=== PATIENT | female | born 1940 | race Caucasian/White ===

== ENCOUNTER 2017-08-03 23:23 | Inpatient (IN) | payer MEDICARE ==
[2017-08-04] MEDS ORDERED: Ondansetron HCl/PF 4 MG/2 ML Vial ONE (01:12)
[2017-08-04] MEDS ORDERED: Morphine 2 mg/2ml in 0.9% NaCl PF SYRINGE ONE (01:12)
[2017-08-04 02:29] LABS: Band 2 % (5-11); Hematocrit 42.6 % (36.0-47.0); Neutrophil 86 % (42-75); Red Blood Cell (RBC) Count 4.17 mill/uL (4.20-5.40); White Blood Cell (WBC) Count 12.7 thou/uL (4.8-10.8)
[2017-08-04 02:30] LABS: ALT (SGPT) 13 U/L (8-55); AST (SGOT) 22 U/L (5-34); Alkaline Phosphatase 67 U/L (40-150); Anion Gap 13 mmol/L (10-20); BUN (Urea Nitrogen) 24 mg/dL (9.8-20.1); Calc. Creatinine Clearance 0 mL/min (70-130); Calcium 9.7 mg/dL (7.8-10.44); Carbon Dioxide 27 mmol/L (23-31); Chloride 103 mmol/L (98-107); Estimated GFR-MDRD 60; Globulin 2.9 g/dL (2.4-3.5); Protein, Total 6.8 g/dL (6.0-8.3)
[2017-08-04] MEDS ORDERED: Ondansetron ODT 4 MG TAB PO PRN (03:31)
[2017-08-04] MEDS ORDERED: Ketorolac Tromethamine 30 MG/ML VIAL IVP PRN (03:31)
[2017-08-04] MEDS ORDERED: Morphine PF 1 MG/ML SYR IVP PRN (03:31)
[2017-08-04] MEDS ORDERED: Acetaminophen 500 MG TAB PO PRN (03:31)
[2017-08-04] MEDS ORDERED: Dextrose 50% Abboject 50 ML SYRINGE SLOW IVP PRN (03:31)
[2017-08-04] MEDS ORDERED: Dextrose 5% in Water 1,000 ML IV PRN (03:31)
[2017-08-04] MEDS ORDERED: Sodium Chloride 0.9% 500 ML IV SCH (08:15)
--- NOTE | 2017-08-04 09:05 | CON ---
DATE OF CONSULTATION: 08/04/2017 HISTORY OF PRESENT ILLNESS: Patient is a 77-year-old female who presented to the emergency department overnight for mechanical fall approximately 2000 after getting out of bed. Patient was a gain complaining of low back and right leg pain at that time. Evaluation with imaging revealed a rig ht femur injury as well as T12 compression deformity; therefore, patient was [facility] for further management and the Neurosurgery Service was also consulted. I will see the patien t at the bedside. She appears comfortable lying flat in bed. She has complaints of some low back an d right leg pain. She denies any sensation changes, bowel or bladder issues. PAST MEDICAL HISTORY: Hypothyroidism, atrial fibrillation, DVT, hypertension. PAST SURGICAL HISTORY: Right knee replacement, hysterectomy, right hip replacement, right ankle surg vinicius. SOCIAL HISTORY: The patient does not smoke, drink or use any drugs. ALLERGIES: The patient is allergic to ATIVAN, CEFTIN, CIPROFLOXACIN, CLINDAMYCIN, DIGOXIN, GABAPENTI N, LEVOFLOXACIN, LYRICA, MOVANTIK, ROCEPHIN, and TRAMADOL. REVIEW OF SYSTEMS: Per HPI. PHYSICAL EXAMINATION: CONSTITUTIONAL: In no acute distress. VITAL SIGNS: Temperature 97.9, heart rate 73, respiratory rate 16, 98% on room air, BP is 134/62. HEAD: Normocephalic, atraumatic. EYES: PERRLA. Extraocular movements are intact. Sclerae are white. ENT: OP is clear. Mucosa is pink, intact and moist. NECK: Supple, nontender to palpation. Free active range of motion. CARDIAC: Regular rate and rhythm. LUNGS: Regular respiration rate, breathing comfortable, no evidence of dyspnea. MUSCULOSKELETAL: Patient has good muscle tone in bilateral upper extremities, decreased range of mot ion over the right leg secondary to recent injury. No focal weakness. NEUROLOGIC: A&O x4. No focal neurologic deficit is appreciated. ASSESSMENT: T12 compression fracture. PLAN: I have ordered a TLSO brace for patient's T12 compression fracture seen on imaging. The patie nt should wear the brace for all out of bed activities. She can be moved briefly to shower when she is lying flat in the bed. We will plan to follow the patient on an outpatient basis with a repeat se t of x-ray in recent 4 weeks. Please reach out to Neurosurgical Service for any additional questions or concerns.
--- NOTE | 2017-08-04 09:17 | RAD ---
PORTABLE CHEST: Date: 08/04/17 HISTORY: Fell from bed with chest pain. COMPARISON: 08/05/16. FINDINGS: The patient is rotated on this exam. Heart size is enlarged. The lungs are clear of infiltrates. I do not see any signs of rib fracture or evidence of pneumothorax. IMPRESSION: Mild cardiomegaly. No acute injury seen. POS: [facility]
--- NOTE | 2017-08-04 09:19 | RAD ---
RIGHT HIP 2 VIEWS: Date: 08/04/17 HISTORY: Fell from bed. FINDINGS: Total hip prosthesis is in good position. There are no signs of fracture. IMPRESSION: No evidence of acute injury. POS: [facility]
--- NOTE | 2017-08-04 09:20 | RAD ---
RIGHT KNEE 4 VIEWS: Date: 08/04/17 HISTORY: Patient fell. FINDINGS: Total knee prosthesis is present. There is a fracture through the medial femoral condyle partially ob scured by the femoral component of the prosthesis. Bones are demineralized. IMPRESSION: Acute fracture of the medial femoral condyle. There is an associated joint effusion which appears to represent a lipohemarthrosis. POS: [facility]
--- NOTE | 2017-08-04 09:22 | RAD ---
LUMBAR SPINE SERIES 2 VIEWS: Date: 08/04/17 HISTORY: Patient is status post fall. FINDINGS: There is a wedge-shaped T12 compression fracture. There appears to be some osteophyte change. There i s some retropulsion along the posterior superior margin of this vertebral body. This injury could be old. The remainder of the vertebral bodies are normal in height. There is Grade I spondylolisthesis o f L4 on L5. An IVC filter is in place. IMPRESSION: 1. T12 compression fracture which may be old. Clinical correlation as to whether this is the area of patient's pain. There is some bony retropulsion associated with this. Bone scan or MRI may be helpfu l in assessing the acuity of this injury. No lumbar vertebral fractures are seen. 2. Scoliosis and marked arthritic changes of the lumbar spine. POS: [facility]
--- NOTE | 2017-08-04 09:23 | RAD ---
THORACIC SPINE 2 VIEWS: Date: 08/04/17 HISTORY: Patient is status post fall with back pain. FINDINGS: There are scoliotic changes of the spine convex to the right. The T12 vertebral body shows a wedge-sh aped compression change. There appears to be osteophytic change associated with this. This could be a n older injury. Pedicles appear intact. IMPRESSION: 1. Scoliosis. 2. Age-indeterminate compression fracture of T12. POS: [facility]
[2017-08-04] MEDS: Famotidine/PF 20 mg/2ml Vial SLOW IVP SCH ×2 (09:24→21:33)
[2017-08-04] MEDS: HYDROcodone/Acetaminophen 5/325 mg Tablet PO PRN ×3 (09:36→21:42)
--- NOTE | 2017-08-04 09:59 | HP-2 ---
DATE OF ADMISSION: 08/04/2017 This is Darwin Pavon PA-C dictating for Torrey Dunbar M.D. CHIEF COMPLAINT: Evaluation status post fall. ATTENDING PHYSICIAN: Torrey Dunbar M.D. CONSULTING PHYSICIAN: Dr. Neal for Orthopedics, Dr. Weber for Neurosurgery. HISTORY OF PRESENT ILLNESS: This is a 77-year-old female who reported that she was in a standing pos ition trying to get of bed at approximately 8:00 and she fell and sustained some right knee and back pain. The patient denied any weakness, fever, nausea, vomiting, diarrhea. The patient denies report ing urinary symptoms, any dizziness, headaches, chest pain, shortness breath prior to falling. She d oes report similar episodes of fallen prior, but has not fallen quite some time. At this time, she i s lying supine, complained of only back pain and right lower knee pain. PAST MEDICAL HISTORY: Includes atrial fibrillation, hypertension, hypothyroidism, dystonia. PAST SURGICAL HISTORY: Includes right knee replacement, left knee replacement, bilateral hip replace ments. PSYCHIATRIC HISTORY: None. SOCIAL HISTORY: Denies any drug, tobacco or alcohol use. REVIEW OF SYSTEMS: All 10 systems were reviewed, otherwise stated in HPI were negative. PHYSICAL EXAMINATION: VITAL SIGNS: Currently blood pressure 126/73, heart rate 70, respiratory rate 20, and O2 saturation 95%. HEENT: Head is atraumatic, normocephalic. Pupils are equal, round, and reactive to light. No JVD, no masses. Trachea is midline. No cervical spine tenderness. RESPIRATORY: Clear bilaterally. CARDIOVASCULAR: S1, S2, regular rate and rhythm. ABDOMEN: Soft, nontender, and nondistended. Pelvis intact and nontender. BACK: She does have tenderness in the upper lumbar and lower thoracic area. Scoliosis present. EXTREMITIES: Sensation is intact. Radial pulses normal. Lower extremities, motor strength is limit ed due to pain, posterior pulses are intact. No edema. SKIN: Warm and dry. GCS 15. RADIOLOGIC FINDINGS: CT is pending. Thoracic x-ray showed T12 compression fracture significant ____ _ . Right knee x-ray shows a medial femoral condyle fracture. LABORATORY DATA: CBC shows WBC of 12.7, hemoglobin 13.9, hematocrit 43.6, platelet count 375. Chemi stry: Sodium 139, potassium 3.9, chloride 103, bicarbonate 27, BUN 24, creatinine 0.91, glucose 127. X-RAY FINDINGS: Chest x-ray, no acute disease. Hip x-ray, prosthetic . ASSESSMENT: 1. Status post fall from ground level. 2. T12 compression fracture. 3. Right medial condyle fracture of the femoral. 4. Acute traumatic pain. 5. History of hypertension. 6. History of atrial fibrillation. PLAN: Admit to the telemetry floor for monitoring for atrial fibrillation. We will continue with ne urovascular checks q.4 hours for bilateral lower extremities due to T12 compression fractures, we jasmina l also have best rest ordered until Neurosurgery clears the patient. Orthopedics have been called ab out weightbearing status on the right lower leg, nonoperative at this time. Neurosurgery has been no tified, Dr. Weber's PA, Renea. We will optimize her pain control with p.o. and IV analgesics. We will also have [facility] for medical management. The patient was discussed with Dr. Dunbar and agrees with the above plan.
--- NOTE | 2017-08-04 10:15 | CT ---
PRELIMINARY REPORT/[facility]/EMERGENCY AFTER HOURS PROCEDURE: EXAM: CT Lumbar Spine Without Intravenous Contrast EXAM DATE/TIME: Exam ordered 08/04/2017 2:02 AM CLINICAL HISTORY: 77 years old, female; Injury or trauma; Fall; Initial encounter; Abrasion; Patient HX: Fall; 77 yo f presents to ed for r knee and hip pain S/P fall from standing position while trying to get out of bed tonight at approximately 2000. Pt denies weakness, fever, nvd. Pt does report urinary SX. Pt has katya lar episodes of falling before. She also notes lower back pain from hitting her back against the dres ser when she fell TECHNIQUE: Axial computed tomography images of the lumbar spine without intravenous contrast. Coronal and sagittal reformatted images were created and reviewed. COMPARISON: No relevant prior studies available. FINDINGS: Vertebrae: No fracture. Degenerative change. Scoliosis. Chronic compression deformity of the T12 vert ebral body. Discs/spinal canal/neural foramina: Multilevel disc bulges. No definite nerve root impingement. No sp inal canal stenosis. Soft tissues: Unremarkable. Vasculature: IVC filter present. IMPRESSION: No fracture. Thank you for allowing us to participate in the care of your patient. Dictated and Authenticated by: Francisco Javier Sesay MD 08/04/2017 2:39 AM Central Time ([place] & [place]) FINAL REPORT EMERGENCY AFTER HOURS CT LUMBAR SPINE PERFORMED WITHOUT CONTRAST ENHANCEMENT: Date: 08/04/17 HISTORY: Back pain with right knee and right hip pain status post fall. FINDINGS: The lung bases show chronic change. There are some moderate compression changes of the superior end p late of T12. There is some minimal bony retropulsion of the posterior superior margin of the vertebra l body associated with this and what appeared to be some osteophytic change. I would favor that this represents an older injury. The remainder of the vertebral body is well demineralized and shows jonnie l height. There is severe disc narrowing at L2-3. There is a Grade I spondylolisthesis of L4 on L5. T here are moderate degenerative facet changes along the course of the lumbar spine. The L2-3 level shows retrolisthesis of L2 on L3 and mild degree of canal narrowing. There is also mil d to moderate degree of canal narrowing at L3-4 and severe canal stenosis at L4-5 related to the dege nerative facet changes and spondylolisthesis. No significant narrowing is seen at the L5-S1 level. Vi sualized portions of the sacrum show no signs of fracture. IMPRESSION: 1. Moderate compression changes of the superior end plate of T12 with some bony retropulsion of the posterior superior margin of the vertebral body. There appears to be some osteophytic change associat ed with this and I would favor that this is related to an older injury. Clinical correlation is recom mended. Bone scan or MRI may be helpful if this is felt to be acute. There is no significant canal na rrowing associated with this. 2. Severe arthritic change of the spine. There are some multilevel areas of canal stenosis, most sev ere degree of narrowing is at the L4-5 level where the combination of facet and ligamentous hypertrop hic changes and disc bulging causes moderate to severe canal narrowing. This report is in agreement with the preliminary report issued by [facility]. POS: [facility]
[2017-08-04] MEDS ORDERED: Ketoconazole 2% Cream 15 gm Tube TOP PRN (13:57)
[2017-08-04] MEDS ORDERED: diphenhydrAMINE 25 MG CAP PO PRN (13:57)
[2017-08-04] MEDS ORDERED: Ondansetron ODT 8 MG TAB PO PRN (13:57)
--- NOTE | 2017-08-04 14:00 | PDOC.PN ---
- Subjective Encounter Start Date: 08/04/17 Encounter Start Time: 08:40 Pt seen for management of chronic medical comorbidities, including hypertension. Denies chest pain, shortness fo breath, fevers or chills. Reports R hip pain. - Objective MAR Reviewed: Yes Vital Signs & Weight: Vital Signs (12 hours) Temp Pulse Resp BP BP Pulse Ox 08/04/17 12:08 98.4 F 82 16 116/56 L 98 08/04/17 08:05 97.9 F 73 16 98 08/04/17 08:03 97.9 F 73 16 134/62 98 08/04/17 05:30 98.0 F 76 18 97 08/04/17 04:10 98.0 F 76 18 141/85 H 97 Weight Weight 106 lb 12.8 oz I&O: 08/03/17 08/04/17 08/05/17 06:59 06:59 06:59 Output Total 125 Balance -125 Result Diagrams: 08/04/17 01:52 08/04/17 01:52 EKG Reviewed by me: Yes (Tele: NSR) Phys Exam - Physical Examination Constitutional: NAD HEENT: moist MMs, sclera anicteric Neck: supple Respiratory: clear to auscultation bilateral Cardiovascular: RRR, no rub Gastrointestinal: soft, non-tender Musculoskeletal: pulses present R hip pain Lymphatic: no nodes Psychiatric: normal affect Skin: no rash Dx/Plan (1) Hypertension Code(s): I10 - ESSENTIAL (PRIMARY) HYPERTENSION Status: Chronic Qualifiers: Hypertension type: essential hypertension Qualified Code(s): I10 - Essential (primary) hypertension (2) COPD (chronic obstructive pulmonary disease) Status: Chronic (3) Dyslipidemia Code(s): E78.5 - HYPERLIPIDEMIA, UNSPECIFIED Status: Chronic (4) GERD (gastroesophageal reflux disease) Code(s): K21.9 - GASTRO-ESOPHAGEAL REFLUX DISEASE WITHOUT ESOPHAGITIS Status: Chronic (5) Hypothyroid Code(s): E03.9 - HYPOTHYROIDISM, UNSPECIFIED Status: Chronic Qualifiers: Hypothyroidism type: unspecified Qualified Code(s): E03.9 - Hypothyroidism , unspecified - Plan * . Hold rivaroxaban until it is clear there is no plan for surgical intervention. Monitor vital signs, titrate antihypertensives as needed. COPD stable. Continue PPI. Review of Systems - Review of Systems Constitutional: negative: Fever, Chills, Sweats, Weakness, Malaise Respiratory: negative: Cough, Dry, Shortness of Breath, Hemoptysis, SOB with Excertion, Pleuritic Pain, Sputum, Wheezing Cardiovascular: negative: Chest Pain, Palpitations, Orthopnea, Paroxysmal Noc. Dyspnea, Edema, Light Headedness - Medications/Allergies Allergies/Adverse Reactions: Allergies Allergy/AdvReac Type Severity Reaction Status Date / Time ciprofloxacin Allergy Severe Hives Verified 08/04/17 04:44 lorazepam Allergy Intermediate itching Verified 08/04/17 04:44 ceftriaxone sodium Allergy Unknown Diarrhea Verified 08/04/17 04:44 [From Rocephin] naloxegol [From Movantik] Allergy Verified 08/04/17 04:44 naloxegol oxalate Allergy Verified 08/04/17 04:44 [From Movantik] gabapentin AdvReac Severe Verified 08/04/17 04:44 tramadol AdvReac Severe Verified 08/04/17 04:44 pregabalin AdvReac Intermediate Verified 08/04/17 04:44 cefuroxime AdvReac Hives Verified 08/04/17 04:44 clindamycin AdvReac Diarrhea Verified 08/04/17 04:44 Medications: Current Medications Acetaminophen (Tylenol) 500 mg PO Q6H PRN PRN Reason: Pain Hydrocodone Bitart/Acetaminophen ([place] 5/325) 1 tab PO Q6H PRN PRN Reason: Pain Last Admin: 08/04/17 09:36 Dose: 1 tab Albuterol/Ipratropium (Duoneb) 3 ml NEB Q4H PRN PRN Reason: Wheezing Amitriptyline HCl (Elavil) 50 mg PO HS [facility] Dextrose/Water (Dextrose 50%) 25 gm SLOW IVP PRN PRN PRN Reason: Hypoglycemia Famotidine (Pepcid) 20 mg SLOW IVP Q12HR [facility] Last Admin: 08/04/17 09:24 Dose: 20 mg Flecainide Acetate (Tambocor) 50 mg PO BID [facility] Last Admin: 08/04/17 09:23 Dose: 50 mg Glucagon (Glucagon) 1 mg IM PRN PRN PRN Reason: Hypoglycemia Hydralazine HCl (Apresoline) 10 mg SLOW IVP Q4H PRN PRN Reason: SBP > 170 or DBP > 100 Dextrose/Water (D5w) 1,000 mls @ 0 mls/hr IV .Q0M PRN; As Directed PRN Reason: Hypoglycemia Ketoconazole (Nizoral 2% Cream) gm TOP BID PRN PRN Reason: moisture Ketorolac Tromethamine (Toradol) 15 mg IVP Q6H PRN PRN Reason: Pain Stop: 08/09/17 03:32 Lactulose (Lactulose) 10 gm PO BID PRN PRN Reason: Constipation Levothyroxine Sodium (Synthroid) 50 mcg PO 0600 [facility] Morphine Sulfate (Duramorph) 2 mg IVP Q2H PRN PRN Reason: Breakthrough Pain Nitrofurantoin Macrocrystals (Macrobid) 100 mg PO QPM [facility] Non-Formulary Medication (Cartilage/Collagen/Bor/Hyalur [Move Free Ultra Tablet] ) 1 each PO DAILY [facility] Non-Formulary Medication (Cetirizine Hcl [Zyrtec]) 10 mg PO DAILY [facility] Non-Formulary Medication (Diphenhydramine Hcl [Benadryl Allergy]) 25 mg PO Q6HR PRN PRN Reason: Allergies Non-Formulary Medication (Omeprazole [Prilosec]) 20 mg PO DAILY [facility] Ondansetron HCl (Zofran Odt) 4 mg PO Q6H PRN PRN Reason: Nausea/Vomiting Ondansetron HCl (Zofran) 4 mg IVP Q6H PRN PRN Reason: Nausea Ondansetron HCl (Zofran Odt) 8 mg PO Q8HR PRN PRN Reason: Nausea Sodium Chloride (Flush - Normal Saline) 10 ml IVF PRN PRN PRN Reason: Saline Flush
--- NOTE | 2017-08-04 14:00 | CON ---
DATE OF CONSULTATION: 08/04/2017 HISTORY OF PRESENT ILLNESS: Ms. Barnett is a 77-year-old white female, who is status post right total knee replacement, approximately 8 years ago. Patient states that she was getting out of bed last nig ht and fell injuring her right back and her right knee. The patient was brought to the emergency johnny m where x-rays were obtained of the right knee that showed total knee replacement in good alignment. There was a fracture of either the medial femoral condyle or medial epicondyle. It is unable to be completely determined, because of the hardware of the total knee. The patient has huge amount of swe lling. Most of her pain is on the medial aspect of the knee as would be expected. She also has sign ificant pain in her back, and x-ray shows a T12 compression fracture, which is being treated by Neuro surgery. PAST MEDICAL HISTORY: Medical illnesses: Atrial fibrillation, hypertension, hypothyroidism, dystoni a. PAST SURGICAL HISTORY: Right total knee replacement, left total knee replacement, bilateral hip repl acements. MEDICATIONS: None listed. PHYSICAL EXAMINATION EXTREMITIES: Examination of the right knee, the patient has moderate swelling in the knee. Skin is in excellent condition. She has a well-healed scar in the anterior aspect of the knee. The knee was not stressed, because of the known fracture. The patient's right lower extremity is neurovascularly intact. IMPRESSION: Nondisplaced fracture of either the medial femoral condyle or medial epicondyle, fractur e is in good alignment and the total knee replacement appears to be intact and in good position. PLAN: We would not recommend any surgery for the right knee. She will be placed in a knee immobiliz er when she is out of bed; when she is in bed, she will not need the knee immobilizer. Once cleared by Neurosurgery, I will have physical therapy work with her to get her out of bed and touchdown weigh t-bear on the right lower extremity. The patient was informed that the fracture will take 2-3 months to heal.
[2017-08-04 16:58] LABS: Bilirubin Small (Negative); Blood, Urine Small (Negative); Glucose, Urine (Dipstick) Negative (Negative); Ketone, Urine 15 mg/dL (Negative); Nitrite Positive (Negative); Protein, Urine (Dipstick) Trace mg/dL (Neg-Trace)
[2017-08-04 17:01] LABS: Bacteria/HPF 1+ HPF (None Seen)
[2017-08-04 17:12] LABS: Hyaline Casts/LPF 0-3 HYALINE CAST LPF (0-3 Hyaline); RBC/HPF 0-3 HPF (0-3); Yeast-All Forms None Seen HPF (None Seen)
[2017-08-04] MEDS: Sodium Chloride 0.9% 1,000 ML IV SCH (18:06)
[2017-08-04] MEDS: Amitriptyline HCl 25 MG TAB PO SCH (21:33)
[2017-08-04] MEDS: Nitrofurantoin Monohyd/M-Cryst 100 MG CAP PO SCH (21:34)
[2017-08-05] MEDS: HYDROcodone/Acetaminophen 5/325 mg Tablet PO PRN (04:17)
[2017-08-05 05:34] LABS: #Eosinphils 0.1 thou/uL (0.0-0.7); #Lymphocytes 0.8 thou/uL (1.20-3.40); #Monocytes 1.2 thou/uL (0.11-0.59); %Basophils 0.2 % (0.0-1.0); %Eosinophils 0.6 % (0.0-10.0); %Lymphocytes 6.8 % (21.0-51.0); %Monocytes 9.8 % (0.0-10.0); Hematocrit 39.7 % (36.0-47.0); Mean Platelet Volume 7.6 fL (7.4-10.4); Red Blood Cell (RBC) Count 3.92 mill/uL (4.20-5.40); White Blood Cell (WBC) Count 12.1 thou/uL (4.8-10.8)
[2017-08-05 05:48] LABS: ALT (SGPT) 10 U/L (8-55); AST (SGOT) 17 U/L (5-34); Alkaline Phosphatase 54 U/L (40-150); Anion Gap 10 mmol/L (10-20); BUN (Urea Nitrogen) 25 mg/dL (9.8-20.1); Bilirubin, Total 1.1 mg/dL (0.2-1.2); Calc. Creatinine Clearance 53 mL/min (70-130); Carbon Dioxide 24 mmol/L (23-31); Chloride 100 mmol/L (98-107); Estimated GFR-MDRD 76; Globulin 2.6 g/dL (2.4-3.5); Protein, Total 5.8 g/dL (6.0-8.3)
[2017-08-05] MEDS ORDERED: Levothyroxine Sodium 75 MCG TAB PO SCH (06:00)
[2017-08-05] MEDS: Levothyroxine Sodium 50 MCG TAB PO SCH (06:19)
--- NOTE | 2017-08-05 06:40 | HP ---
ADDENDUM The patient was seen in conjunction with Darwin Pavon PA-C. For full details, please see his hi story and physical exam from earlier this morning. In short, the patient is a 77-year-old woman who fell at home getting out of bed to go to the [facility]. She cannot remember the exact circumstances of the fall. She states that she got out of bed, the next thing she knew she was on the floor. She came in complaining of right knee and back pain and w orkup in the emergency room showed a right medial condyle fracture of the femur around her prosthesis . She also had a T12 compression fracture with some chronicity to that. She has been admitted for a TLSO brace and nonoperative management of the knee injury. Past medical history, surgical history, social history, medications and allergies are reviewed and ar e as documented in the chart. Radiographic images are personally reviewed and I agree with the radio logist's assessment. Labs are fairly unremarkable, although she did have some white cells and bacter ia in her urine. There were also 7-10 squamous cells. This was likely contaminated. She does not r eport symptoms for UTI, although, she has had problems voiding since her injury. A complete physical examination was performed by myself and no other significant injuries found. She does have tenderne ss over her lower thoracic and upper lumbar area and fairly severe scoliosis. Her right knee is tend er, but not particularly swollen. She has normal pedal pulses and normal sensation and movement of h er distal extremities. Her abdomen and chest are benign and she has no focal neurologic deficits. ASSESSMENT AND PLAN: T12 compression fracture and right medial condyle fracture of the distal femur. She has been fitted for a TLSO brace and is tolerating that and the cause of her fall is not yet de termined. She does have a history of multiple falls in the past, but states that she had not fallen almost a year before this particular fall. The nurses did state that when they got her up out of bed , she would seem to almost lose consciousness briefly, but she has received pain medication here in [facility]. Her blood pressure is normal when checked. She is on the telemetry gold, and we will m onitor her for arrhythmias. Medicine has been consulted to work up her syncope. She is on Xarelto f or her atrial fibrillation and if she continues to have near syncopal episodes as described by the nu rses, this will likely need to be discontinued permanently. Currently, it is being held, although we have continued the rest of her home medications including her Synthroid and flecainide. She will ne ed continued physical therapy after her discharge from the hospital and we are looking into inpatient rehabilitation versus jail placement with PT capacity.
[2017-08-05] MEDS ORDERED: [UNRECOGNIZED DRUG - REMARK] PO SCH (09:00)
[2017-08-05] MEDS: Loratadine 10 MG TAB PO SCH (09:37)
[2017-08-05] MEDS: Famotidine/PF 20 mg/2ml Vial SLOW IVP SCH ×2 (09:37→21:04)
[2017-08-05] MEDS: Sodium Chloride 0.9% 1,000 ML IV SCH ×4 (09:45→21:04)
[2017-08-05] MEDS ORDERED: Sodium Chloride 0.9% 500 ML IV SCH (11:00)
--- NOTE | 2017-08-05 12:40 | PDOC.PN ---
- Subjective Encounter Start Date: 08/05/17 Encounter Start Time: 08:20 Pt seen for followup re: hypertension. Denies chest pain, fevers or chills. - Objective MAR Reviewed: Yes Vital Signs & Weight: Vital Signs (12 hours) Temp Pulse Pulse Pulse Resp BP BP 08/05/17 11:38 98.6 F 92 16 08/05/17 08:57 94 78 173/98 H 137/72 08/05/17 04:00 98.6 F 87 20 BP BP Pulse Ox 08/05/17 11:38 180/87 H 97 08/05/17 08:57 08/05/17 04:00 166/85 H 97 Weight Weight 116 lb I&O: 08/04/17 08/05/17 08/06/17 06:59 06:59 06:59 Intake Total 1700 Output Total 125 Balance -125 1700 Result Diagrams: 08/05/17 05:17 08/05/17 05:17 EKG Reviewed by me: Yes (Tele; NSR) Phys Exam - Physical Examination Constitutional: NAD HEENT: moist MMs, oral pharynx no lesions Neck: supple Respiratory: clear to auscultation bilateral Cardiovascular: RRR Gastrointestinal: soft, non-tender, positive bowel sounds Musculoskeletal: pulses present Psychiatric: normal affect Skin: no rash Dx/Plan (1) Hypertension Code(s): I10 - ESSENTIAL (PRIMARY) HYPERTENSION Status: Chronic Qualifiers: Hypertension type: essential hypertension Qualified Code(s): I10 - Essential (primary) hypertension (2) COPD (chronic obstructive pulmonary disease) Status: Chronic (3) Dyslipidemia Code(s): E78.5 - HYPERLIPIDEMIA, UNSPECIFIED Status: Chronic (4) GERD (gastroesophageal reflux disease) Code(s): K21.9 - GASTRO-ESOPHAGEAL REFLUX DISEASE WITHOUT ESOPHAGITIS Status: Chronic (5) Hypothyroid Code(s): E03.9 - HYPOTHYROIDISM, UNSPECIFIED Status: Chronic Qualifiers: Hypothyroidism type: unspecified Qualified Code(s): E03.9 - Hypothyroidism , unspecified - Plan PT/OT, out of bed/ambulate * . Pt is on chronic suppressive therapy with nitrofurantoin for recurrent UTIs. Monitor vital signs and titrate antihypertensives as needed. Continue synthroid. Ambulate pt. Review of Systems - Review of Systems Respiratory: negative: Cough, Dry, Shortness of Breath, Hemoptysis, SOB with Excertion, Pleuritic Pain, Sputum, Wheezing Cardiovascular: negative: Chest Pain, Palpitations, Orthopnea, Paroxysmal Noc. Dyspnea, Edema, Light Headedness Genitourinary: negative: Dysuria, Frequency, Incontinence, Hematuria, Retention - Medications/Allergies Allergies/Adverse Reactions: Allergies Allergy/AdvReac Type Severity Reaction Status Date / Time ciprofloxacin Allergy Severe Hives Verified 08/04/17 04:44 lorazepam Allergy Intermediate itching Verified 08/04/17 04:44 ceftriaxone sodium Allergy Unknown Diarrhea Verified 08/04/17 04:44 [From Rocephin] naloxegol [From Movantik] Allergy Verified 08/04/17 04:44 naloxegol oxalate Allergy Verified 08/04/17 04:44 [From Movantik] gabapentin AdvReac Severe Verified 08/04/17 04:44 tramadol AdvReac Severe Verified 08/04/17 04:44 pregabalin AdvReac Intermediate Verified 08/04/17 04:44 cefuroxime AdvReac Hives Verified 08/04/17 04:44 clindamycin AdvReac Diarrhea Verified 08/04/17 04:44 Medications: Current Medications Acetaminophen (Tylenol) 500 mg PO Q6H PRN PRN Reason: Pain Hydrocodone Bitart/Acetaminophen ([place] 5/325) 1 tab PO Q6H PRN PRN Reason: Pain Last Admin: 08/05/17 04:17 Dose: 1 tab Albuterol/Ipratropium (Duoneb) 3 ml NEB Q4H PRN PRN Reason: Wheezing Amitriptyline HCl (Elavil) 50 mg PO HS [facility] Last Admin: 08/04/17 21:33 Dose: 50 mg Dextrose/Water (Dextrose 50%) 25 gm SLOW IVP PRN PRN PRN Reason: Hypoglycemia Diphenhydramine HCl (Benadryl) 25 mg PO Q6H PRN PRN Reason: Allergies Famotidine (Pepcid) 20 mg SLOW IVP Q12HR [facility] Last Admin: 08/05/17 09:37 Dose: 20 mg Flecainide Acetate (Tambocor) 50 mg PO BID [facility] Last Admin: 08/05/17 09:38 Dose: 50 mg Glucagon (Glucagon) 1 mg IM PRN PRN PRN Reason: Hypoglycemia Hydralazine HCl (Apresoline) 10 mg SLOW IVP Q4H PRN PRN Reason: SBP > 170 or DBP > 100 Dextrose/Water (D5w) 1,000 mls @ 0 mls/hr IV .Q0M PRN; As Directed PRN Reason: Hypoglycemia Sodium Chloride (Normal Saline 0.9%) 1,000 mls @ 100 mls/hr IV .Q10H [facility] Last Admin: 08/05/17 11:27 Dose: Not Given Ketoconazole (Nizoral 2% Cream) 0 gm TOP BID PRN PRN Reason: Topical Irritations Ketorolac Tromethamine (Toradol) 15 mg IVP Q6H PRN PRN Reason: Pain Stop: 08/09/17 03:32 Lactulose (Lactulose) 10 gm PO BID PRN PRN Reason: Constipation Levothyroxine Sodium (Synthroid) 50 mcg PO 0600 [facility] Last Admin: 08/05/17 06:19 Dose: 50 mcg Loratadine (Claritin) 10 mg PO DAILY [facility] Last Admin: 08/05/17 09:37 Dose: 10 mg Nitrofurantoin Macrocrystals (Macrobid) 100 mg PO QPM [facility] Last Admin: 08/04/17 21:34 Dose: 100 mg Ondansetron HCl (Zofran) 4 mg IVP Q6H PRN PRN Reason: Nausea Ondansetron HCl (Zofran Odt) 8 mg PO Q8H PRN PRN Reason: Nausea Pantoprazole Sodium (Protonix) 40 mg PO DAILY [facility] Last Admin: 08/05/17 09:37 Dose: 40 mg Sodium Chloride (Flush - Normal Saline) 10 ml IVF PRN PRN PRN Reason: Saline Flush
--- NOTE | 2017-08-05 12:55 | ULT ---
BILATERAL CAROTID DUPLEX ULTRASOUND: Date: 08/05/17 HISTORY: Syncope. FINDINGS: Real-time color Doppler evaluation of the right and left carotid systems was performed. This showed s ome moderate plaque formation of the origin of both internal carotid arteries. On the right side, peak systolic velocities of the common carotid were 70 cm/second. Internal carotid velocities were 58 cm/second and external carotid velocities were 61 cm/second. On the left side, peak systolic velocities of the common carotid were 48 cm/second. Internal carotid velocities were 75 cm/second and external carotid velocities were 57 cm/second. Vertebral flow was antegrade bilaterally. IMPRESSION: No evidence of hemodynamically significant stenosis of either internal carotid artery. POS: [facility]
[2017-08-05] MEDS: Ondansetron HCl/PF 4 MG/2 ML Vial IVP PRN ×2 (13:13→23:49)
--- NOTE | 2017-08-05 14:14 | PRG ---
DATE OF SERVICE: 08/05/2017 ATTENDING PHYSICIAN: Dr. Torrey Dunbar. SUBJECTIVE: The patient is hospital day #1 status post ground-level fall, which she sustained medial condyle fracture of the right distal femur. A compression fracture of T12 was also noted, which appeared to be chronic. She reported multiple ground level falls in the past with unknown etiology. She has been admitted to the floor and has remained hemodynamically stable; however , she complains of dizziness and lightheadedness everytime she tries to get out of bed to mobilize with therapy. Hospital medicine was consulted and continues to follow her progress. She was started on Macrobid for UTI. OBJECTIVE: VITAL SIGNS: Temperature 98.6, pulse 92, respirations 16, O2 sat 97% on room air, blood pressure 173/98. GENERAL: Elderly female in no acute distress, resting comfortably in bed. HEENT: Unremarkable. HEART: Regular rate and rhythm. LUNGS: Clear to auscultation bilaterally. ABDOMEN: Soft, nontender, nondistended. EXTREMITIES: Moves all extremities well. Neurovascularly intact. Cap refill brisk. IMAGING: An echocardiogram was performed this a.m. Result is pending. Bilateral carotid Doppler was done, which showed no significant stenosis. ASSESSMENT: 1. 77-year-old female status post ground-level fall. 2. Right femoral condyle fracture, nonoperative treatment. 3. T12 compression fracture appearing chronic in nature. 4. Recurrent syncope. 5. UTI 6. Dehydration 7. Hyponatremia PLAN: Continue current care as ordered. Continue syncope workup per Hospital Medicine Service. Continue antibiotics as ordered for UTI. Normal saline bolus this a.m. for apparent dehydration. Increase maintenance fluids from 50 mL to 100 mL per hour. Continue therapy as tolerated. Case management consult in a.m. for discharge planning. [facility]
[2017-08-05] MEDS: hydrALAZINE 20 MG/ML VIAL SLOW IVP PRN (16:07)
[2017-08-05] MEDS: Amitriptyline HCl 25 MG TAB PO SCH (21:04)
[2017-08-05] MEDS: Nitrofurantoin Monohyd/M-Cryst 100 MG CAP PO SCH (21:05)
[2017-08-06] MEDS: HYDROcodone/Acetaminophen 5/325 mg Tablet PO PRN ×3 (00:46→18:25)
[2017-08-06] MEDS: Levothyroxine Sodium 50 MCG TAB PO SCH (06:53)
[2017-08-06] MEDS: Sodium Chloride 0.9% 1,000 ML IV SCH ×4 (06:53→22:56)
[2017-08-06 07:43] LABS: #Lymphocytes 0.8 thou/uL (1.20-3.40); #Monocytes 1.6 thou/uL (0.11-0.59); #Neutrophils 16.3 thou/uL (1.40-6.50); %Basophils 0.1 % (0.0-1.0); %Eosinophils 0.1 % (0.0-10.0); %Lymphocytes 4.2 % (21.0-51.0); %Monocytes 8.7 % (0.0-10.0); Hematocrit 40.1 % (36.0-47.0); Mean Platelet Volume 6.9 fL (7.4-10.4); Red Blood Cell (RBC) Count 3.94 mill/uL (4.20-5.40); White Blood Cell (WBC) Count 18.8 thou/uL (4.8-10.8)
[2017-08-06 08:02] LABS: ALT (SGPT) 9 U/L (8-55); AST (SGOT) 21 U/L (5-34); Alkaline Phosphatase 51 U/L (40-150); Anion Gap 12 mmol/L (10-20); BUN (Urea Nitrogen) 29 mg/dL (9.8-20.1); Bilirubin, Total 1.2 mg/dL (0.2-1.2); Calc. Creatinine Clearance 57 mL/min (70-130); Carbon Dioxide 22 mmol/L (23-31); Chloride 104 mmol/L (98-107); Estimated GFR-MDRD 82; Globulin 2.6 g/dL (2.4-3.5); Protein, Total 5.7 g/dL (6.0-8.3)
[2017-08-06] MEDS: Loratadine 10 MG TAB PO SCH (09:04)
[2017-08-06] MEDS: Senokot 8.6 MG TAB PO SCH (09:04)
[2017-08-06] MEDS: Docusate 100 MG CAP PO SCH (09:04)
[2017-08-06] MEDS: Famotidine/PF 20 mg/2ml Vial SLOW IVP SCH ×2 (09:05→20:39)
[2017-08-06] MEDS: hydrALAZINE 20 MG/ML VIAL SLOW IVP PRN (09:09)
[2017-08-06] MEDS ORDERED: hydrALAZINE 20 MG/ML VIAL SLOW IVP PRN (11:25)
[2017-08-06] MEDS ORDERED: Amlodipine 5 MG TAB PO SCH (11:30)
--- NOTE | 2017-08-06 14:14 | PRG ---
DATE OF SERVICE: 08/06/2017 ATTENDING PHYSICIAN: Dr. Jose Carlos SUBJECTIVE: The patient is hospital day #2 status post ground level fall. She sustained a medial co ndyle fracture of the right distal femur and a compression fracture of T12. Nonoperative management was recommended. She was admitted to telemetry and had been experiencing dizziness when she is getti ng out of bed to ambulate with therapy. Vitals otherwise stable. [facility] She was started on Macrobid for her UTI. She takes Xarelto for chronic atrial fibrillation. Xarelto has been held since admission. OBJECTIVE: VITAL SIGNS: Temperature 97.2, pulse 99, respirations 18, O2 saturation 98% room air, blood pressure 171/89. GENERAL: Elderly female in no acute distress. HEENT: Unremarkable. CARDIOVASCULAR: Heart regular rate and rhythm. CHEST: Lungs clear to auscultation bilaterally. ABDOMEN: Soft, nontender, nondistended. EXTREMITIES: Moves all extremities well. Neurovascularly intact. DIAGNOSTIC STUDIES: An echogram performed yesterday shows normal left ventricular size, left atrium and EF at 60-65%, mild tricuspid regurgitation. Please see complete report. Carotid Doppler done on e day ago shows no significant carotid stenosis. WBCs have increased from 12.1 to 18.8 today. ASSESSMENT: 1. A 77-year-old female status post ground level fall. 2. Right femoral condyle fracture, nonoperative treatment. 3. T12 compression fracture appearing chronic in nature. 4. Recurrent syncope. 5. Urinary tract infection. 6. Dehydration. 7. Hyponatremia, resolved. PLAN: Continue current care as ordered. Continue antibiotics as ordered. We will stop amitriptylin e as family reports that the patient's weakness and syncope seem to be related to her starting amitri ptyline. Hospital Medicine continues to follow. We have discussed with Dr. Benavidez need for further w orkup. Inpatient rehabilitation referral made. Case management is consulted for discharge planning. Assessment and plan were reviewed with attending trauma surgeon.
[2017-08-06] MEDS: Meropenem 1 GM, Admixture Fee 1 EACH in Sodium Chloride 0.9% 100 ML IVPB SCH ×2 (14:31→20:39)
--- NOTE | 2017-08-06 15:43 | PDOC.PN ---
- Subjective Encounter Start Date: 08/06/17 Encounter Start Time: 08:20 Pt seen for followup re: Pseudomonas UTI. Denies chest pain, shortness of breath, fevers or chills. No nausea or vomiting. - Objective MAR Reviewed: Yes Vital Signs & Weight: Vital Signs (12 hours) Temp Pulse Resp BP BP BP Pulse Ox 08/06/17 13:25 104 H 139/65 08/06/17 12:00 98.0 F 104 H 18 132/76 96 08/06/17 09:09 99 171/89 H 08/06/17 08:30 97.2 F L 99 18 98 08/06/17 08:00 97.2 F L 99 18 171/89 H 98 08/06/17 04:00 98.4 F 99 20 170/89 H 99 Weight Admit Weight 106 lb 12.8 oz Weight 116 lb I&O: 08/05/17 08/06/17 08/07/17 06:59 06:59 06:59 Intake Total 1700 2580 Output Total 500 Balance 1700 2080 Result Diagrams: 08/06/17 07:34 08/06/17 07:34 EKG Reviewed by me: Yes (Tele: NSR) Phys Exam - Physical Examination Constitutional: NAD HEENT: moist MMs Neck: supple Respiratory: clear to auscultation bilateral Cardiovascular: RRR Gastrointestinal: soft, non-tender Musculoskeletal: pulses present Neurological: moves all 4 limbs Psychiatric: normal affect Skin: no rash Dx/Plan (1) Pseudomonas urinary tract infection Code(s): N39.0 - URINARY TRACT INFECTION, SITE NOT SPECIFIED; B96.5 - PSEUDOMONAS (MALLEI) CAUSING DISEASES CLASSD ELSWHR Status: Acute (2) Hypertension Code(s): I10 - ESSENTIAL (PRIMARY) HYPERTENSION Status: Chronic Qualifiers: Hypertension type: essential hypertension Qualified Code(s): I10 - Essential (primary) hypertension (3) COPD (chronic obstructive pulmonary disease) Status: Chronic (4) Dyslipidemia Code(s): E78.5 - HYPERLIPIDEMIA, UNSPECIFIED Status: Chronic (5) GERD (gastroesophageal reflux disease) Code(s): K21.9 - GASTRO-ESOPHAGEAL REFLUX DISEASE WITHOUT ESOPHAGITIS Status: Chronic (6) Hypothyroid Code(s): E03.9 - HYPOTHYROIDISM, UNSPECIFIED Status: Chronic Qualifiers: Hypothyroidism type: unspecified Qualified Code(s): E03.9 - Hypothyroidism , unspecified - Plan * . Change antibiotic to meropenem. discussed with pt re: chance of cross reactivity (pt is allergic to ceftriaxone, with side effects of nausea and itching). Discussed with primary service, no plans for surgery, start anticoagulation. Resume amlodipine, continue PRN IV hydralazine. Review of Systems - Review of Systems Constitutional: Weakness. negative: Fever, Chills, Sweats, Malaise Cardiovascular: negative: Chest Pain, Palpitations, Orthopnea, Paroxysmal Noc. Dyspnea, Edema, Light Headedness, Other Gastrointestinal: negative: Nausea, Vomiting, Abdominal Pain, Diarrhea, Constipation, Melena, Hematochezia - Medications/Allergies Allergies/Adverse Reactions: Allergies Allergy/AdvReac Type Severity Reaction Status Date / Time ciprofloxacin Allergy Severe Hives Verified 08/04/17 04:44 lorazepam Allergy Intermediate itching Verified 08/04/17 04:44 ceftriaxone sodium Allergy Unknown Diarrhea Verified 08/04/17 04:44 [From Rocephin] naloxegol [From Movantik] Allergy Verified 08/04/17 04:44 naloxegol oxalate Allergy Verified 08/04/17 04:44 [From Movantik] gabapentin AdvReac Severe Verified 08/04/17 04:44 tramadol AdvReac Severe Verified 08/04/17 04:44 pregabalin AdvReac Intermediate Verified 08/04/17 04:44 cefuroxime AdvReac Hives Verified 08/04/17 04:44 clindamycin AdvReac Diarrhea Verified 08/04/17 04:44 Medications: Current Medications Acetaminophen (Tylenol) 500 mg PO Q6H PRN PRN Reason: Pain Hydrocodone Bitart/Acetaminophen ([place] 5/325) 1 tab PO Q6H PRN PRN Reason: Pain Last Admin: 08/06/17 11:11 Dose: 1 tab Albuterol/Ipratropium (Duoneb) 3 ml NEB Q4H PRN PRN Reason: Wheezing Amlodipine Besylate (Norvasc) 5 mg PO DAILY [facility] Dextrose/Water (Dextrose 50%) 25 gm SLOW IVP PRN PRN PRN Reason: Hypoglycemia Diphenhydramine HCl (Benadryl) 25 mg PO Q6H PRN PRN Reason: Allergies Docusate Sodium (Colace) 100 mg PO DAILY [facility] Last Admin: 08/06/17 09:04 Dose: 100 mg Famotidine (Pepcid) 20 mg SLOW IVP Q12HR [facility] Last Admin: 08/06/17 09:05 Dose: 20 mg Flecainide Acetate (Tambocor) 50 mg PO BID [facility] Last Admin: 08/06/17 09:04 Dose: 50 mg Glucagon (Glucagon) 1 mg IM PRN PRN PRN Reason: Hypoglycemia Hydralazine HCl (Apresoline) 10 mg SLOW IVP Q4H PRN PRN Reason: SBP > 170 or DBP > 100 Last Admin: 08/06/17 09:09 Dose: 10 mg Hydralazine HCl (Apresoline) 10 mg SLOW IVP Q6H PRN PRN Reason: SBP Greater Than 170 Dextrose/Water (D5w) 1,000 mls @ 0 mls/hr IV .Q0M PRN; As Directed PRN Reason: Hypoglycemia Sodium Chloride (Normal Saline 0.9%) 1,000 mls @ 100 mls/hr IV .Q10H [facility] Last Admin: 08/06/17 11:16 Dose: 1,000 mls Meropenem 1 gm/ Miscellaneous Medication 1 each/ Sodium Chloride 100 mls @ 200 mls/hr IVPB 0400,1200,2000 [facility] Last Admin: 08/06/17 14:31 Dose: 100 mls Ketoconazole (Nizoral 2% Cream) 0 gm TOP BID PRN PRN Reason: Topical Irritations Ketorolac Tromethamine (Toradol) 15 mg IVP Q6H PRN PRN Reason: Pain Stop: 08/09/17 03:32 Lactulose (Lactulose) 10 gm PO BID PRN PRN Reason: Constipation Levothyroxine Sodium (Synthroid) 50 mcg PO 0600 [facility] Last Admin: 08/06/17 06:53 Dose: 50 mcg Loratadine (Claritin) 10 mg PO DAILY [facility] Last Admin: 08/06/17 09:04 Dose: 10 mg Ondansetron HCl (Zofran) 4 mg IVP Q6H PRN PRN Reason: Nausea Last Admin: 08/05/17 23:49 Dose: 4 mg Ondansetron HCl (Zofran Odt) 8 mg PO Q8H PRN PRN Reason: Nausea Pantoprazole Sodium (Protonix) 40 mg PO DAILY [facility] Last Admin: 08/06/17 09:04 Dose: 40 mg Rivaroxaban (Xarelto) 20 mg PO 1700 [facility] Senna (Senokot) 2 tab PO DAILY [facility] Last Admin: 08/06/17 09:04 Dose: 2 tab Sodium Chloride (Flush - Normal Saline) 10 ml IVF PRN PRN PRN Reason: Saline Flush Last Admin: 08/06/17 09:11 Dose: 10 ml
[2017-08-06] MEDS: Rivaroxaban 10 MG TAB PO SCH (17:39)
[2017-08-07] MEDS: HYDROcodone/Acetaminophen 5/325 mg Tablet PO PRN ×2 (03:47→09:34)
[2017-08-07] MEDS: Meropenem 1 GM, Admixture Fee 1 EACH in Sodium Chloride 0.9% 100 ML IVPB SCH ×3 (03:49→20:37)
[2017-08-07 05:25] LABS: BUN (Urea Nitrogen) 31 mg/dL (9.8-20.1); Calc. Creatinine Clearance 58 mL/min (70-130); Calcium 8.9 mg/dL (7.8-10.44); Carbon Dioxide 13 mmol/L (23-31); Chloride 109 mmol/L (98-107); Estimated GFR-MDRD 85; Phosphorus 2.7 mg/dL (2.3-4.7)
[2017-08-07] MEDS: Levothyroxine Sodium 50 MCG TAB PO SCH (05:26)
[2017-08-07 05:54] LABS: Anion Gap 16 mmol/L (10-20)
[2017-08-07 06:02] LABS: Band 6 % (5-11); Hematocrit 44.1 % (36.0-47.0); Macrocytosis SLIGHT = 6-15 cells (100X) (0-5/hpf); Mean Platelet Volume 7.6 fL (7.4-10.4); Metamyelocyte 1 % (0-0); Myelocyte 1 % (0-0); Neutrophil 73 % (42-75); Polychromasia SLIGHT = 2-3 cells (100X) (0-2/hpf); Reactive Lymphocytes 1 % (0-10); Red Blood Cell (RBC) Count 4.16 mill/uL (4.20-5.40); White Blood Cell (WBC) Count 13.5 thou/uL (4.8-10.8)
[2017-08-07 06:38] VITALS: BMI 21.3
[2017-08-07] MEDS ORDERED: Amlodipine 10 MG TAB PO SCH (09:00)
--- NOTE | 2017-08-07 09:10 | PDOC.PN ---
- Subjective Encounter Start Date: 08/07/17 Encounter Start Time: 07:20 Pt seen for followup re; UTI. Feels better. No chest pain, nausea or vomiting. - Objective MAR Reviewed: Yes Vital Signs & Weight: Vital Signs (12 hours) Temp Pulse Pulse Resp BP BP Pulse Ox 08/07/17 07:56 100 133/69 08/07/17 04:00 97.7 F 100 20 149/80 H 98 08/07/17 00:00 97.5 F L 99 20 141/79 H 96 Weight Admit Weight 106 lb 12.8 oz Weight 116 lb 9.6 oz I&O: 08/06/17 08/07/17 08/08/17 06:59 06:59 06:59 Intake Total 2580 2970 Output Total 500 425 Balance 0 2545 Result Diagrams: 08/07/17 04:35 08/07/17 04:35 EKG Reviewed by me: Yes (Tele: NSR) Phys Exam - Physical Examination Constitutional: NAD HEENT: moist MMs Neck: supple Respiratory: clear to auscultation bilateral Cardiovascular: RRR Gastrointestinal: soft, non-tender Musculoskeletal: pulses present Psychiatric: normal affect Skin: no rash Dx/Plan (1) Pseudomonas urinary tract infection Code(s): N39.0 - URINARY TRACT INFECTION, SITE NOT SPECIFIED; B96.5 - PSEUDOMONAS (MALLEI) CAUSING DISEASES CLASSD ELSWHR Status: Acute (2) Hypertension Code(s): I10 - ESSENTIAL (PRIMARY) HYPERTENSION Status: Chronic Qualifiers: Hypertension type: essential hypertension Qualified Code(s): I10 - Essential (primary) hypertension (3) COPD (chronic obstructive pulmonary disease) Status: Chronic (4) Dyslipidemia Code(s): E78.5 - HYPERLIPIDEMIA, UNSPECIFIED Status: Chronic (5) GERD (gastroesophageal reflux disease) Code(s): K21.9 - GASTRO-ESOPHAGEAL REFLUX DISEASE WITHOUT ESOPHAGITIS Status: Chronic (6) Hypothyroid Code(s): E03.9 - HYPOTHYROIDISM, UNSPECIFIED Status: Chronic Qualifiers: Hypothyroidism type: unspecified Qualified Code(s): E03.9 - Hypothyroidism , unspecified - Plan PT/OT, out of bed/ambulate * . Continue meropenem, no allergic reaction. BP better, continue amlodipine, monitor vital signs and titrate antihypertensives as needed. Ambulate patient. Review of Systems - Review of Systems Respiratory: negative: Cough, Dry, Shortness of Breath, Hemoptysis, SOB with Excertion, Pleuritic Pain, Sputum, Wheezing Cardiovascular: negative: Chest Pain, Palpitations, Orthopnea, Paroxysmal Noc. Dyspnea, Edema, Light Headedness - Medications/Allergies Allergies/Adverse Reactions: Allergies Allergy/AdvReac Type Severity Reaction Status Date / Time ciprofloxacin Allergy Severe Hives Verified 08/04/17 04:44 lorazepam Allergy Intermediate itching Verified 08/04/17 04:44 ceftriaxone sodium Allergy Unknown Diarrhea Verified 08/04/17 04:44 [From Rocephin] naloxegol [From Movantik] Allergy Verified 08/04/17 04:44 naloxegol oxalate Allergy Verified 08/04/17 04:44 [From Movantik] gabapentin AdvReac Severe Verified 08/04/17 04:44 tramadol AdvReac Severe Verified 08/04/17 04:44 pregabalin AdvReac Intermediate Verified 08/04/17 04:44 cefuroxime AdvReac Hives Verified 08/04/17 04:44 clindamycin AdvReac Diarrhea Verified 08/04/17 04:44 Medications: Current Medications Acetaminophen (Tylenol) 500 mg PO Q6H PRN PRN Reason: Pain Hydrocodone Bitart/Acetaminophen ([place] 5/325) 1 tab PO Q6H PRN PRN Reason: Pain Last Admin: 08/07/17 03:47 Dose: 1 tab Albuterol/Ipratropium (Duoneb) 3 ml NEB Q4H PRN PRN Reason: Wheezing Amlodipine Besylate (Norvasc) 5 mg PO DAILY [facility] Amoxicillin/Clavulanate Potassium (Augmentin) 875 mg PO Q12HR [facility] Dextrose/Water (Dextrose 50%) 25 gm SLOW IVP PRN PRN PRN Reason: Hypoglycemia Diphenhydramine HCl (Benadryl) 25 mg PO Q6H PRN PRN Reason: Allergies Docusate Sodium (Colace) 100 mg PO DAILY [facility] Last Admin: 08/06/17 09:04 Dose: 100 mg Flecainide Acetate (Tambocor) 50 mg PO BID [facility] Last Admin: 08/06/17 20:42 Dose: 50 mg Glucagon (Glucagon) 1 mg IM PRN PRN PRN Reason: Hypoglycemia Hydralazine HCl (Apresoline) 10 mg SLOW IVP Q4H PRN PRN Reason: SBP > 170 or DBP > 100 Last Admin: 08/06/17 09:09 Dose: 10 mg Hydralazine HCl (Apresoline) 10 mg SLOW IVP Q6H PRN PRN Reason: SBP Greater Than 170 Dextrose/Water (D5w) 1,000 mls @ 0 mls/hr IV .Q0M PRN; As Directed PRN Reason: Hypoglycemia Meropenem 1 gm/ Miscellaneous Medication 1 each/ Sodium Chloride 100 mls @ 200 mls/hr IVPB 0400,1200,2000 [facility] Last Admin: 08/07/17 03:49 Dose: 100 mls Ibuprofen (Motrin) 600 mg PO Q8H [facility] Ketoconazole (Nizoral 2% Cream) 0 gm TOP BID PRN PRN Reason: Topical Irritations Lactulose (Lactulose) 30 gm PO DAILY [facility] Levothyroxine Sodium (Synthroid) 50 mcg PO 0600 [facility] Last Admin: 08/07/17 05:26 Dose: 50 mcg Loratadine (Claritin) 10 mg PO DAILY [facility] Last Admin: 08/06/17 09:04 Dose: 10 mg Ondansetron HCl (Zofran) 4 mg IVP Q6H PRN PRN Reason: Nausea Last Admin: 08/05/17 23:49 Dose: 4 mg Ondansetron HCl (Zofran Odt) 8 mg PO Q8H PRN PRN Reason: Nausea Pantoprazole Sodium (Protonix) 40 mg PO DAILY [facility] Last Admin: 08/06/17 09:04 Dose: 40 mg Rivaroxaban (Xarelto) 20 mg PO 1700 [facility] Last Admin: 08/06/17 17:39 Dose: 20 mg Senna (Senokot) 2 tab PO DAILY [facility] Last Admin: 08/06/17 09:04 Dose: 2 tab Sodium Chloride (Flush - Normal Saline) 10 ml IVF PRN PRN PRN Reason: Saline Flush Last Admin: 08/06/17 09:11 Dose: 10 ml
[2017-08-07] MEDS: Docusate 100 MG CAP PO SCH (09:34)
[2017-08-07] MEDS: Loratadine 10 MG TAB PO SCH (09:34)
[2017-08-07] MEDS: Amlodipine 5 MG TAB PO SCH (09:34)
[2017-08-07] MEDS: Senokot 8.6 MG TAB PO SCH (09:35)
[2017-08-07] MEDS ORDERED: Bisacodyl 10 MG SUPP PR SCH (10:45)
[2017-08-07] MEDS: Magnesium Citrate 300 ML BOT PO SCH ×2 (11:39→15:35)
[2017-08-07] MEDS: Ibuprofen 600 MG TAB PO SCH ×2 (11:40→17:16)
--- NOTE | 2017-08-07 15:30 | PRG-2 ---
DATE OF SERVICE: 08/07/2017 ATTENDING PHYSICIAN: Dr. Jose Carlos. SUBJECTIVE: The patient is hospital day #3 status post ground level fall. She sustained medial cond yle fracture of the right distal femur and a compression fracture of T12. The patient is doing eb r today. Her dizziness has improved since stopping amitriptyline. Vitals have remained stable. The patient's urine grew pansensitive Pseudomonas. Treatment has been started on for that. The patient was visiting with case management upon entering room. No acute events overnight. OBJECTIVE: VITAL SIGNS: Temperature 97.9, pulse 100, respiratory rate 16, O2 sat 95% and blood pressure 133/69. GENERAL: An elderly female in no acute distress. HEENT: Unremarkable. CARDIOVASCULAR: Regular rate and rhythm. CHEST: Lungs are clear to auscultation bilaterally. Normal respiratory effort. ABDOMEN: Soft, nontender and nondistended. EXTREMITIES: Full range of motion. Neurovascularly intact. LABORATORY DATA: White blood cell count 13.5, hemoglobin 13.8, hematocrit 44.1 and platelets 357,000 . Sodium 133, potassium 4.8, chloride 109, bicarbonate 13, BUN 31, creatinine 0.67 and glucose 105. ASSESSMENT: A 77-year-old female with; 1. Status post ground level fall. 2. Right femoral condyle fracture, nonoperative treatment. 3. T12 compression fracture apparent chronic in nature. 4. Recurrent syncope. 5. Urinary tract infection. 6. Dehydration. 7. Hyponatremia. PLAN: Continue care as ordered. Continue antibiotics as ordered. This patient's symptoms of dizzin ess seemed to improve at the least with stopping amitriptyline. Hospital medicine continues to [facility]. Inpatient rehab has seen the patient and the patient will be cleared for transfer to inpatient re [facility] after having a bowel movement. Case management is on the case as well. Assessment and plan are reviewed with attending trauma surgeon.
--- NOTE | 2017-08-07 16:41 | PDOC.EVN ---
Event Note - Event Note Event Note: discussed with pharmacy, will discontinue Augmentin and continue meropenem (1gm IV q8h) for five days. Inpt Rehab facility able to give this medication at that dosing.
[2017-08-07] MEDS ORDERED: Milk Of Magnesia 30 ML UDCUP PO SCH (17:15)
[2017-08-07] MEDS: Rivaroxaban 10 MG TAB PO SCH (17:16)
[2017-08-07] MEDS ORDERED: Amoxicillin/Potassium Clav 875 MG TAB PO SCH (21:00)
[2017-08-07 22:02] LABS: Oxyhemoglobin 85.8 % (94.0-97.0)
[2017-08-07 22:03] LABS: Sodium 138 mmol/L (135-148)
[2017-08-07 22:04] LABS: Mode NC; Modified Allen's Test POSITIVE; Vent NO
--- NOTE | 2017-08-07 22:22 | RAD ---
PORTABLE CHEST: 08/07/17 HISTORY: Dyspnea. Respiratory distress. COMPARISON: 08/04/17. Bilateral pleural effusions which have increased since prior exam. The upper lung guajardo are clear. N o evidence of vascular congestion. IMPRESSION: Bilateral pleural effusions have occurred since prior study. POS: [facility]
--- NOTE | 2017-08-07 22:25 | PDOC.EVN ---
Event Note - Event Note Event Note: Code Liam called. Pt seen and examined. chart reviewed. Pt became hypoxic with reduced awareness, increased somnolence. responds to verbal stimuli, able to tell name. BS equal B/l . no wheezes,Rales. Tachycardic. VS w BP initaillay SBP in 90s then dropped to 80s. O2 sats can not be obtained. Monitor shows Sinus tachycardia Pt started on NRB and ABG done w Ph of 7.2 w Co2 56. Transferred to CCU. CXR done which by my review is w/o edema/infiltrates. Discussed w director of clinical education Pulmonary Dr. Paniagua. Will try Biapap for now and recheck ABG in 1 hour. NS bolus at 250 cc. Order CBC, CMP,cardiac Enzymes,LA, Mag/Phos. Pt had IVC filter and is on Xarelto for h/o a-fib. Meds reviewed.All narcotics/sedatives stopped. Full code. will follow.
[2017-08-07 22:31] LABS: Troponin I 0.045 ng/mL (< 0.028)
[2017-08-07 22:32] LABS: Band 20 % (5-11); Hematocrit 43.4 % (36.0-47.0); Mean Platelet Volume 7.6 fL (7.4-10.4); Neutrophil 57 % (42-75); Red Blood Cell (RBC) Count 4.18 mill/uL (4.20-5.40); White Blood Cell (WBC) Count 12.6 thou/uL (4.8-10.8)
[2017-08-07 22:51] LABS: ALT (SGPT) 24 U/L (8-55); AST (SGOT) 80 U/L (5-34); Alkaline Phosphatase 80 U/L (40-150); Anion Gap 19 mmol/L (10-20); BUN (Urea Nitrogen) 40 mg/dL (9.8-20.1); Bilirubin, Total 1.1 mg/dL (0.2-1.2); Calc. Creatinine Clearance 28 mL/min (70-130); Calcium 9.7 mg/dL (7.8-10.44); Carbon Dioxide 16 mmol/L (23-31); Chloride 107 mmol/L (98-107); Estimated GFR-MDRD 36; Globulin 2.5 g/dL (2.4-3.5); Magnesium 2.5 mg/dL (1.6-2.6); Phosphorus 3.8 mg/dL (2.3-4.7); Protein, Total 5.8 g/dL (6.0-8.3)
[2017-08-07 23:45] LABS: Sodium 138 mmol/L (135-148)
[2017-08-07 23:48] LABS: Mode NIV; Modified Allen's Test POSITIVE; Pressure Support 12 cmH2O; Vent NO
[2017-08-08] MEDS: Ibuprofen 600 MG TAB PO SCH (03:03)
[2017-08-08] MEDS: Sodium Chloride 0.9% 1,000 ML IV SCH ×4 (03:08→21:08)
[2017-08-08] MEDS: Meropenem 1 GM, Admixture Fee 1 EACH in Sodium Chloride 0.9% 100 ML IVPB SCH (05:04)
[2017-08-08 05:09] LABS: Anion Gap 16 mmol/L (10-20); BUN (Urea Nitrogen) 43 mg/dL (9.8-20.1); Calc. Creatinine Clearance 23 mL/min (70-130); Calcium 9.7 mg/dL (7.8-10.44); Carbon Dioxide 23 mmol/L (23-31); Chloride 103 mmol/L (98-107); Estimated GFR-MDRD 29
[2017-08-08 05:13] LABS: Troponin I 0.056 ng/mL (< 0.028)
[2017-08-08] MEDS: Levothyroxine Sodium 50 MCG TAB PO SCH (06:27)
[2017-08-08] MEDS: Amlodipine 5 MG TAB PO SCH (07:55)
[2017-08-08] MEDS: Loratadine 10 MG TAB PO SCH (08:05)
[2017-08-08] MEDS: Docusate 100 MG CAP PO SCH (08:05)
[2017-08-08] MEDS: Senokot 8.6 MG TAB PO SCH (08:05)
[2017-08-08] MEDS: Milk Of Magnesia 30 ML UDCUP PO SCH ×2 (08:06→08:19)
[2017-08-08] MEDS ORDERED: traMADol HCl 50 MG TAB PO PRN (08:41)
--- NOTE | 2017-08-08 08:41 | RAD ---
SUPINE KUB: Date: 08-08-17 Comparison: None. History: Abdominal distention and pain. FINDINGS: Supine imaging is provided, which limits assessment for small bowel obstruction and free intraperiton eal air. There are dilated gas filled loops of small bowel within the pelvis and left upper quadrant measuring up to 4.2 cm. IVC filter present to the right of the upper lumbar spine. There is lumbar sp ine rotoscoliosis. There is post-operative hardware within the proximal femora, including a hip arthr oplasty on the right. IMPRESSION: Multiple loops of gas filled distended small bowel in the right upper quadrant and lower abdomen/pelv is suspicious for small bowel obstruction or possibly ileus. CT examination advised for further asses sment. POS: SAIMA
[2017-08-08] MEDS ORDERED: Bisacodyl 10 MG SUPP PR SCH (09:00)
[2017-08-08 09:40] LABS: Lactic Acid - Sepsis 4.1 mmol/L (0.5-2.2)
[2017-08-08] MEDS: Acetaminophen 500 MG TAB PO SCH ×2 (09:57→13:42)
--- NOTE | 2017-08-08 10:47 | CON ---
DATE OF CONSULTATION: 08/08/2017 HISTORY OF PRESENT ILLNESS: This is a 77-year-old female who apparently fell at home after she got dizzy in the bathroom. She complained of right knee and back pain. She went to the ER where a right medial condyle fracture of the femur around her prosthesis was noticed. She also had a T2 compressi on fracture, chronic. She was on the telemetry unit when yesterday she became obtunded, hypotensive. She was transferred to the ICU on BiPAP. This morning she is on BiPAP. This was taken off. She was placed on low flow O2. Sats are 90-91%, pulse 102, blood pressure low at 81/31. She is complaining of abdominal pain, but no obvious difficu lty breathing. PAST MEDICAL HISTORY: Additional information is somewhat extensive medical history includes a previo us echocardiogram that showed ejection fraction normal at 60-65%. Numerous admissions in the past, m ainly for cardiac issues including chronic atrial fibrillation on buttermaker helper anticoagulation, hypothyr oidism, chronic obstructive pulmonary disease, hyperlipidemia, reflux. PAST SURGICAL HISTORY: Including right ankle fracture, appendix, hysterectomy, tonsils, adenoids, ca taracts. Previous neurological issues felt to be related to medication. Apparently unable to get additional i nformation about her history of smoking. MEDICATIONS AT HOME: Includes [place], amlodipine 5, Zyrtec, amitriptyline 50, Tambocor 50, omeprazole , Synthroid 50, Xarelto 20, Zofran. ALLERGIES: Numerous; CIPRO, ATIVAN, CEFTRIAXONE, GABAPENTIN, CLINDAMYCIN. PHYSICAL EXAMINATION: GENERAL: She is awake, responsive. VITAL SIGNS: Sats are 91, blood pressure 180/131. CHEST: Chest reveals no wheezing or crackles. CARDIAC: Normal S1, S2. No gallops. ABDOMEN: Soft, no masses. Distended, but soft. LABORATORY: White count 12,000, H&H 13 and 48, platelet count is normal. PO2 77, pCO2 40%, 25, crea tinine 1.7. Troponin was elevated. IMPRESSION: 1. Recent fall. 2. Elevated troponin. 3. Normal ejection fraction. 4. Renal failure. 5. Encephalopathy. 6. Abdominal pain, ileus, stool impaction. PLAN: Avoid any sedative medication. Neb treatments. Hydrocortisone. Input from Surgery regarding abdominal distension. She may need an NG tube if her abdomen remains an issue. has been give n. Will try to avoid intubation if possible. Resuscitation later. Forty-five minute critical care time.
[2017-08-08] MEDS ORDERED: Sodium Chloride 0.9% 1,000 ML IV SCH (11:00)
[2017-08-08 11:29] LABS: Oxyhemoglobin 83.5 % (94.0-97.0); Sodium 138 mmol/L (135-148)
[2017-08-08 11:30] LABS: Mechanical Tidal Volume 400 ml; Modified Allen's Test POSITIVE; Vent YES
[2017-08-08] MEDS ORDERED: Albumin 25% 25 GM/100 ML BOT IVPB SCH (11:30)
[2017-08-08 11:31] LABS: Mode SIMV/PS; Pressure Support 10 cmH2O
[2017-08-08 11:44] LABS: Mechanical Tidal Volume 400 ml; Mode SIMV/PS; Modified Allen's Test POSITIVE; Oxyhemoglobin 89.7 % (94.0-97.0); Pressure Support 10 cmH2O; Sodium 138 mmol/L (135-148); Vent YES
[2017-08-08] MEDS: Hydrocortisone Sod Succ/PF 100 mg/2 ml Vial IVP SCH ×3 (12:52→23:57)
--- NOTE | 2017-08-08 13:03 | RAD ---
CHEST ONE VIEW PORTABLE: HISTORY: A 77-year-old female with respiratory insufficiency. COMPARISON: 08/07/2017 FINDINGS: Endotracheal tube is in a satisfactory location. NG tube tip is in the stomach. The sidehole is jus t above the level of the left hemidiaphragm, and advancement of 5 to 7 cm might allow the sidehole to completely enter the stomach. There is an IVC filter in place. There are bilateral lower lobe pare nchymal changes in the infrahilar regions with some right hemidiaphragm elevation, somewhat worse on the right side. There is blunting of both costophrenic angles. IMPRESSION: Bilateral lower lobe and infrahilar linear and interstitial and alveolar parenchymal changes, somewha t greater in the right base, with some right hemidiaphragm elevation. These changes have worsened wh en compared to the 08/07/2017 study. Continue short-term followup. POS: SAIMA
--- NOTE | 2017-08-08 13:04 | PRG ---
DATE OF SERVICE: 08/08/2017 Senia Barnett this morning early was transferred to the Intensive Care Unit because of mental statu s change. She became somnolent hypoxic and lethargic. She is noted to have acute abdominal distensi on, abdominal x-ray revealed small bowel distention. She did have 3 bowel movements yesterday after Milk of Magnesia and mag citrate. The patient was transferred to the Intensive Care Unit. We saw he r this morning and she was conversive, although slightly decreased mental status and felt weak. LUNGS: Clear, without wheezing, but she did have wet airway sounds from upper airway secretions. CARDIAC: Regular rate and rhythm. ABDOMEN: Quiet, it was distended and tympanitic and tender without peritoneal signs, but with guardi ng. EXTREMITIES: Unremarkable. The patient is essentially anuric since the Code Green event. Her BUN and creatinine are slightly el evated at 43 and 1.7. She has a history of chronic kidney disease with intermittent elevation of BUN and creatinine and deterioration of her GFR with abnormality. LABORATORY: Sodium 138, potassium 4.3, carbon dioxide 23. Lactic acid 4.1. CK-MB and troponin I we re slightly elevated, but in face of chronic kidney disease it is difficult to determine the signific ance. White count was 12.6, hemoglobin 13 and she had 20% bands last night. The patient essentially has been anuric since being in the ICU. Palliative Care has seen the patient and discussion with the family undertaken. There was some specu lation the family was considering DNR and hospice care. For the 2-3 weeks prior to this admission th e patient has been at home, has not wanted to get out of bed, did not want to eat. It was the family 's perception the patient had essentially given up. The patient has suffered a fall and her total hi p arthroplasty was intact on x-rays 08/04/2017. Dr. Cochran had seen her 08/04/2017 and did not cristina mmend any surgery for the right knee problem for the nondisplaced fracture of the medial femoral cond yle, fracture is in good alignment. It was felt that she would need a knee immobilizer when out of b ed. Neurosurgery has seen on 08/04/2017 noting an acute T12 compression fracture. TLSO brace was or dered when she is out of bed. This morning, the patient experienced acute respiratory arrest requiring intubation by Dr. Camacho. Ech ocardiogram report 08/04/2017 revealed LV function 60-65%, normal LV size and no effusions. When she was intubated NG tube was placed and 2.5 liters of gastric contents evacuated. Abdomen po ined however slightly distended and slightly tender with guarding throughout. She remained responsiv e and would follow commands. I discussed the situation with the patient's son. The patient has a daughter in [place], [place], who has been here to visit with her mother. The patient has another son in [place], [place]. The corinna pond's son that is present has discussed the situation with the remainder of family and it was their feeling that the patient be considered a DNR. I discussed with the son that we had ordered a CAT sc an, but since it is the family's decision that she not have any operations or procedures we have canc eled the CAT scan. Family is discussing withdrawal of care. It is the family's decision, the patien t has given up and does not want to have anything else done and the family does not want her to suffe r. Plan is to institute a DNR and pending family's discussion most likely extubation later today and hospice type care. ASSESSMENT AND PLAN: 1. Acute respiratory failure. Mechanical ventilation instituted. 2. Acute abdominal distention. She has had a prior hysterectomy, total abdominal with bilateral tyler pingo-oophorectomy and appendectomy. Abdominal x-rays suggest a bowel obstruction. She has a histor y of atrial fibrillation and had been off Xarelto for a few days around the time her surgery, but Xar elto had been restarted. Possibilities include an embolic event with ischemic bowel, mechanical anjel l obstruction versus ileus after her fall. CAT scan will be canceled and DNR care instituted and mos t likely withdrawal of care. 3. Acute kidney injury with acute renal failure, oliguric Prognosis is poor. 4. Chronic atrial fibrillation with IVC filter in place. 5. Leukocytosis with a left shift.
[2017-08-08] MEDS ORDERED: Morphine PF 1 MG/ML SYR IV PRN (14:37)
--- NOTE | 2017-08-08 15:03 | PDOC.PN ---
- Subjective Encounter Start Date: 08/08/17 Encounter Start Time: 09:40 Pt seen for followup re: acute respiratory failure. Appears weak. Denies chest pain or cough. - Objective Resuscitation Status: Resuscitation Status DNR:Do Not Resuscitate MAR Reviewed: Yes Vital Signs & Weight: Vital Signs (12 hours) Temp Pulse Resp BP Pulse Ox 08/08/17 14:00 22 H 08/08/17 12:00 98.2 F 27 H 100 08/08/17 11:06 22 H 08/08/17 08:21 103 H 08/08/17 07:20 97.4 F L 100 29 H 97 08/08/17 07:19 97.4 F L 100 29 H 99/61 97 08/08/17 04:00 97.9 F Weight Admit Weight 106 lb 12.8 oz Weight 116 lb 9.6 oz Most Recent Monitor Data Heart Rate from ECG 94 NIBP 149/65 NIBP BP-Mean 104 Respiration from ECG 22 SpO2 100 I&O: 08/07/17 08/08/17 08/09/17 06:59 06:59 06:59 Intake Total 2970 1398 250 Output Total 425 240 9 Balance 2545 1158 241 Result Diagrams: 08/07/17 22:00 08/08/17 04:08 Additional Labs: Accuchecks 08/07/17 21:43 POC Glucose 126 H EKG Reviewed by me: Yes (Tele: NSR) Phys Exam - Physical Examination appears tired HEENT: moist MMs Respiratory: clear to auscultation bilateral Cardiovascular: RRR Gastrointestinal: soft distention+, mild diffuse tenderness+ Neurological: moves all 4 limbs Psychiatric: normal affect Skin: no rash Dx/Plan (1) Acute respiratory failure Code(s): J96.00 - ACUTE RESPIRATORY FAILURE, UNSP W HYPOXIA OR HYPERCAPNIA Status: Acute Qualifiers: Respiratory failure complication: hypoxia and hypercapnia Qualified Code(s) : J96.01 - Acute respiratory failure with hypoxia; J96.02 - Acute respiratory failure with hypercapnia; J96.02 - Acute respiratory failure with hypercapnia; J96.02 - Acute respiratory failure with hypercapnia (2) Pseudomonas urinary tract infection Code(s): N39.0 - URINARY TRACT INFECTION, SITE NOT SPECIFIED; B96.5 - PSEUDOMONAS (MALLEI) CAUSING DISEASES CLASSD ELSWHR Status: Acute (3) Hypertension Code(s): I10 - ESSENTIAL (PRIMARY) HYPERTENSION Status: Chronic Qualifiers: Hypertension type: essential hypertension Qualified Code(s): I10 - Essential (primary) hypertension (4) COPD (chronic obstructive pulmonary disease) Status: Chronic (5) Dyslipidemia Code(s): E78.5 - HYPERLIPIDEMIA, UNSPECIFIED Status: Chronic (6) GERD (gastroesophageal reflux disease) Code(s): K21.9 - GASTRO-ESOPHAGEAL REFLUX DISEASE WITHOUT ESOPHAGITIS Status: Chronic (7) Hypothyroid Code(s): E03.9 - HYPOTHYROIDISM, UNSPECIFIED Status: Chronic Qualifiers: Hypothyroidism type: unspecified Qualified Code(s): E03.9 - Hypothyroidism , unspecified - Plan continue antibiotics Pt had respiratory failure overnight, was treated with BiPAP. Continue meropenem for Pseudomonas UTI. Had a lengthy discussion with son. Family leaning towards comfort measures. Will need palliative care consult. * . Review of Systems - Review of Systems Constitutional: negative: Fever, Chills, Sweats, Weakness, Malaise Respiratory: negative: Cough, Dry, Shortness of Breath, Hemoptysis, SOB with Excertion, Pleuritic Pain, Sputum, Wheezing Gastrointestinal: Abdominal Pain - Medications/Allergies Allergies/Adverse Reactions: Allergies Allergy/AdvReac Type Severity Reaction Status Date / Time ciprofloxacin Allergy Severe Hives Verified 08/04/17 04:44 lorazepam Allergy Intermediate itching Verified 08/04/17 04:44 ceftriaxone sodium Allergy Unknown Diarrhea Verified 08/04/17 04:44 [From Rocephin] naloxegol [From Movantik] Allergy Verified 08/04/17 04:44 naloxegol oxalate Allergy Verified 08/04/17 04:44 [From Movantik] gabapentin AdvReac Severe Verified 08/04/17 04:44 tramadol AdvReac Severe Verified 08/04/17 04:44 pregabalin AdvReac Intermediate Verified 08/04/17 04:44 cefuroxime AdvReac Hives Verified 08/04/17 04:44 clindamycin AdvReac Diarrhea Verified 08/04/17 04:44 Medications: Current Medications Acetaminophen (Tylenol) 1,000 mg PO Q6H CANDIDO Last Admin: 08/08/17 13:42 Dose: Not Given Albuterol/Ipratropium (Duoneb) 3 ml NEB Q4H PRN PRN Reason: Wheezing Albuterol/Ipratropium (Duoneb) 3 ml NEB [id number] [facility] Amlodipine Besylate (Norvasc) 5 mg PO DAILY [facility] Last Admin: 08/08/17 07:55 Dose: Not Given Bisacodyl (Dulcolax) 10 mg MD DAILY [facility] Last Admin: 08/08/17 08:05 Dose: 10 mg Dextrose/Water (Dextrose 50%) 25 gm SLOW IVP PRN PRN PRN Reason: Hypoglycemia Docusate Sodium (Colace) 100 mg PO DAILY [facility] Last Admin: 08/08/17 08:05 Dose: 100 mg Flecainide Acetate (Tambocor) 50 mg PO BID [facility] Last Admin: 08/08/17 08:05 Dose: 50 mg Glucagon (Glucagon) 1 mg IM PRN PRN PRN Reason: Hypoglycemia Hydralazine HCl (Apresoline) 10 mg SLOW IVP Q6H PRN PRN Reason: SBP Greater Than 170 Hydrocortisone Sodium Succinate (Solu-Cortef) 50 mg IVP Q6HR [facility] Stop: 08/15/17 12:01 Last Admin: 08/08/17 12:52 Dose: 50 mg Dextrose/Water (D5w) 1,000 mls @ 0 mls/hr IV .Q0M PRN; As Directed PRN Reason: Hypoglycemia Meropenem 500 mg/Miscellaneous Medication 1 each/ Sterile Water 10 mls @ 120 mls/hr SLOW IVP 0400,1600 [facility] Sodium Chloride (Normal Saline 0.9%) 1,000 mls @ 150 mls/hr IV .Q6H40M [facility] Last Admin: 08/08/17 12:51 Dose: Not Given Ketoconazole (Nizoral 2% Cream) 0 gm TOP BID PRN PRN Reason: Topical Irritations Lactulose (Lactulose) 30 gm PO DAILY [facility] Last Admin: 08/08/17 08:18 Dose: Not Given Levothyroxine Sodium (Synthroid) 50 mcg PO 0600 [facility] Last Admin: 08/08/17 06:27 Dose: Not Given Loratadine (Claritin) 10 mg PO DAILY [facility] Last Admin: 08/08/17 08:05 Dose: 10 mg Magnesium Hydroxide (Milk Of Magnesium) 30 ml PO DAILY [facility] Last Admin: 08/08/17 08:19 Dose: Not Given Morphine Sulfate (Duramorph) 2 mg IV Q2H PRN PRN Reason: Pain Last Admin: 08/08/17 14:57 Dose: 2 mg Ondansetron HCl (Zofran) 4 mg IVP Q6H PRN PRN Reason: Nausea Last Admin: 08/05/17 23:49 Dose: 4 mg Ondansetron HCl (Zofran Odt) 8 mg PO Q8H PRN PRN Reason: Nausea Pantoprazole Sodium (Protonix) 40 mg PO DAILY [facility] Last Admin: 08/08/17 08:05 Dose: 40 mg Rivaroxaban (Xarelto) 15 mg PO 1700 [facility] Senna (Senokot) 2 tab PO DAILY [facility] Last Admin: 08/08/17 08:05 Dose: 2 tab Sodium Chloride (Flush - Normal Saline) 10 ml IVF PRN PRN PRN Reason: Saline Flush Last Admin: 08/07/17 11:49 Dose: 10 ml Tramadol HCl (Ultram) 50 mg PO Q6H PRN PRN Reason: Severe Pain (7-10)
[2017-08-08] MEDS ORDERED: Ondansetron HCl/PF 4 MG/2 ML Vial IVP PRN (15:12)
[2017-08-08] MEDS ORDERED: Ondansetron ODT 4 MG TAB PO PRN (15:12)
[2017-08-08] MEDS ORDERED: Ondansetron ODT 8 MG TAB SL PRN (15:12)
--- NOTE | 2017-08-08 15:43 | PRG ---
DATE OF SERVICE: 08/08/2017 SUBJECTIVE: Senia Barnett was seen earlier in the day in the ICU, suddenly became unresponsive, agonal respiration. It happened right about 11. She was bagged. Her was at the bedside. I discussed with her h usband at length that if he did not do anything, she would probably be demise. He was unclear what t o do. Her daughter is in [place], [place]. It was felt at this time that the best option was to intubate her a nd thereafter her family can make a decision on long-term care. She was bagged for a period of time. A #7 tube was placed over the bronchoscope and passed via the v ocal cords orally, placed above the lg. A moderate amount of frothy, relatively clear secretions in both lungs and in the trachea, which was suctioned and lavaged until clear. She is connected now to warm cycle respirator. X-ray and blood gases pending. We will place a NG tube. PHYSICAL EXAMINATION: CHEST: Reveals decreased breath sounds, rhonchi. VITAL SIGNS: Blood pressure remains still low at 98/56, pulse 103. GENERAL: She is minimally responsive. CHEST: Rhonchi. CARDIAC: Normal S1. ABDOMEN: Soft. IMPRESSION: 1. Respiratory failure. 2. Encephalopathy. 3. Recent fall. PLAN: Vent support for the time being, antibiotics, neb treatments, and supportive care. One-half hour critical care time exclusive of the intubation.
--- NOTE | 2017-08-08 16:19 | PRG ---
ADDENDUM DATE OF SERVICE: 08/08/2017 Senia Barnett was seen earlier today and note dictated. I have discussed with the patient's son latoya snyder has been on the phone today, discussed with other family members. Decision was made to extubate h er, signed hospice care. We will plan to convert her OG to an NG tube and leave it to suction; howev er, if she removes it we will leave it out. She will need to be n.p.o. for now, so would not precipi leary further GI problems. We will perform palliative care. We will repeat abdominal x-rays tomorrow .
[2017-08-08] MEDS ORDERED: Rivaroxaban 15 MG TAB PO SCH (17:00)
[2017-08-08] MEDS: Acetaminophen 1,000 MG in Premix Bag 1 BAG IVPB SCH ×2 (18:07→23:57)
[2017-08-08] MEDS: Meropenem 500 MG, Admixture Fee 1 EACH in Sterile Water 10 ML SLOW IVP SCH (18:07)
[2017-08-08] MEDS: Heparin 5,000 UNITS/ML VIAL SC SCH (21:08)
[2017-08-08] MEDS: Ondansetron ODT 4 MG TAB PO SCH (21:09)
[2017-08-09] MEDS: Sodium Chloride 0.9% 1,000 ML IV SCH ×2 (04:26→08:38)
[2017-08-09] MEDS: Meropenem 500 MG, Admixture Fee 1 EACH in Sterile Water 10 ML SLOW IVP SCH ×2 (04:26→16:32)
[2017-08-09] MEDS: Hydrocortisone Sod Succ/PF 100 mg/2 ml Vial IVP SCH ×3 (05:37→18:14)
[2017-08-09] MEDS: Acetaminophen 1,000 MG in Premix Bag 1 BAG IVPB SCH ×3 (05:38→18:14)
[2017-08-09 06:02] LABS: Anion Gap 20 mmol/L (10-20); BUN (Urea Nitrogen) 50 mg/dL (9.8-20.1); Calc. Creatinine Clearance 17 mL/min (70-130); Calcium 8.7 mg/dL (7.8-10.44); Carbon Dioxide 17 mmol/L (23-31); Chloride 109 mmol/L (98-107); Estimated GFR-MDRD 21; Magnesium 2.7 mg/dL (1.6-2.6); Phosphorus 3.6 mg/dL (2.3-4.7)
[2017-08-09 06:08] LABS: Band 29 % (5-11); Hematocrit 33.6 % (36.0-47.0); Mean Platelet Volume 8.1 fL (7.4-10.4); Metamyelocyte 6 % (0-0); Myelocyte 2 % (0-0); Neutrophil 51 % (42-75); White Blood Cell (WBC) Count 8.4 thou/uL (4.8-10.8)
[2017-08-09] MEDS: Heparin 5,000 UNITS/ML VIAL SC SCH ×2 (08:35→20:18)
[2017-08-09] MEDS: Ondansetron ODT 4 MG TAB PO SCH ×2 (08:39→20:36)
[2017-08-09] MEDS: Dextrose 5 %-0.45 % NaCl 1,000 ML IV SCH ×2 (09:56→18:17)
--- NOTE | 2017-08-09 10:05 | RAD ---
SUPINE AP ABDOMINAL RADIOGRAPH: Date: 08/09/17 HISTORY: Follow-up small bowel obstruction. COMPARISON: 08/08/17. FINDINGS: Nasogastric tube is noted in place with tip overlying the left mid abdomen. Dilated loops of small layo wel are again present, which may be slightly improved from the prior exam, but do persist. Postsurgic al changes of bilateral hips are again seen. There is left convex scoliosis thoracolumbar spine. Inje ction granulomata and phleboliths overlie the pelvis. Vascular calcifications are seen in the abdomin al aorta and iliac arteries. IVC filter remains in place. IMPRESSION: 1. Persistent dilated loops of small bowel again likely related to either partial small bowel obstru ction or ileus. 2. Interval placement of a nasogastric tube. POS: SAIMA
--- NOTE | 2017-08-09 10:26 | PRG ---
DATE OF SERVICE: 08/09/2017 SUBJECTIVE: Senia Barnett is a 77-year-old female, DNR per discussion with family yesterday (son). Her son discussed the situation with his siblings who living [place], [place] and [place]. They agreed wit h DNR status, but will continue care. Patient has had a prior hysterectomy and appendectomy through a low incision and she had 2.5 liters NG tube output compromising her respiratory status leading to I CU care. Her NG tube remains in place. Gastric drainage for last 24 hours is 3620, urine output is only 84 mL. LABORATORY DATA: White count is 8, hemoglobin 10, hematocrit 33, platelet count 314,000. This morni ng, her sodium is 141, potassium 4.5, chloride 109, carbon dioxide 17, BUN 50, creatinine 2.26, GFR 2 1. All reflected deterioration in her are renal status. Lactic acid was 4.1 yesterday, it was 2.2 y esterday evening. OBJECTIVE: LUNGS: Clear to auscultation. CARDIAC: Regular rate and rhythm without murmur or gallop. ABDOMEN: Soft, distended, tympanitic. Decreased bowel sounds. ASSESSMENT AND PLAN: 1. DNR status per family discussion. Continue care short of that. 2. Partial bowel obstruction with high NG tube output. Abdominal x-ray today revealed some distende d loops of small bowel in the lower abdomen. NG tube is in good position. There is no discernible gas in the colon for certain. Possibilities include ischemic bowel. She has a history of atrial fib rillation, small-bowel obstruction from peritoneal adhesions. No altered therapy planned, thus CAT s can will not be obtained. Continue supportive care with NG tube. Ice chips as needed. 3. Acute renal failure seems to be worsening. She is essentially anuric. Continue to monitor. 4. Poor mobility. 5. Deconditioning, comfort measures. Family not ready to select the hospice agency. We will contin ue care of this week and we can short of code.
--- NOTE | 2017-08-09 13:16 | PDOC.PN ---
- Subjective Encounter Start Date: 08/09/17 Encounter Start Time: 12:46 Patient seen at bedside. No overnight events, still having output via her NG tube. Urine output remains minimal. - Objective Resuscitation Status: Resuscitation Status DNR:Do Not Resuscitate MAR Reviewed: Yes Vital Signs & Weight: Vital Signs (12 hours) Temp Pulse Pulse Pulse Pulse Resp BP 08/09/17 13:08 98.3 F 106 H 20 08/09/17 11:55 104 H 20 08/09/17 11:22 102 H 101 H 106 H 93/63 08/09/17 08:35 98.2 F 104 H 20 08/09/17 07:25 98.2 F 104 H 20 08/09/17 06:44 98 20 08/09/17 04:00 97.5 F L 97 14 BP BP BP Pulse Ox Pulse Ox Pulse Ox Pulse Ox 08/09/17 13:08 115/68 96 08/09/17 11:55 93 L 08/09/17 11:22 97/58 L 107/64 87 L 90 L 91 L 08/09/17 08:35 94 L 08/09/17 07:25 93/50 L 94 L 08/09/17 06:44 96 08/09/17 04:00 94/57 L 96 Weight Admit Weight 106 lb 12.8 oz Weight 116 lb 9.6 oz Most Recent Monitor Data Heart Rate from ECG 97 NIBP 92/46 NIBP BP-Mean 60 Respiration from ECG 24 SpO2 95 I&O: 08/08/17 08/09/17 08/10/17 06:59 06:59 06:59 Intake Total 1398 4252 Output Total 240 3704 Balance 1158 548 Result Diagrams: 08/09/17 04:46 08/09/17 04:46 Phys Exam - Physical Examination Constitutional: NAD Respiratory: clear to auscultation bilateral Cardiovascular: irregular distended, hypoactive bowel sounds Musculoskeletal: pulses present Dx/Plan (1) Ileus Code(s): K56.7 - ILEUS, UNSPECIFIED Status: Acute (2) Acute respiratory failure Code(s): J96.00 - ACUTE RESPIRATORY FAILURE, UNSP W HYPOXIA OR HYPERCAPNIA Status: Acute Qualifiers: Respiratory failure complication: hypoxia and hypercapnia Qualified Code(s) : J96.01 - Acute respiratory failure with hypoxia; J96.02 - Acute respiratory failure with hypercapnia; J96.02 - Acute respiratory failure with hypercapnia; J96.02 - Acute respiratory failure with hypercapnia (3) Pseudomonas urinary tract infection Code(s): N39.0 - URINARY TRACT INFECTION, SITE NOT SPECIFIED; B96.5 - PSEUDOMONAS (MALLEI) CAUSING DISEASES CLASSD ELSWHR Status: Acute (4) Atrial fibrillation Code(s): I48.91 - UNSPECIFIED ATRIAL FIBRILLATION Status: Chronic Qualifiers: Atrial fibrillation type: paroxysmal Qualified Code(s): I48.0 - Paroxysmal atrial fibrillation - Plan cont current plan of care, continue antibiotics, social services designee * Continue with NG tube and monitor output. * Albumin and IV Fluids for hemodynamic support * Flecainide for Rate control * IV steroids * Overall prognosis poor. As per previous encounters with the primary team, she has been made DNR. Palliative care has been consulted.
[2017-08-10] MEDS: Hydrocortisone Sod Succ/PF 100 mg/2 ml Vial IVP SCH ×4 (00:14→17:07)
[2017-08-10] MEDS: Meropenem 500 MG, Admixture Fee 1 EACH in Sterile Water 10 ML SLOW IVP SCH ×2 (03:20→17:08)
[2017-08-10] MEDS: Dextrose 5 %-0.45 % NaCl 1,000 ML IV SCH ×3 (03:39→19:31)
--- NOTE | 2017-08-10 09:34 | PRG ---
DATE OF SERVICE: 08/10/2017 SUBJECTIVE: The patient is hospital day #7 status post a ground level fall. The patient sustained a right medial condyle femur fracture with a questionable acute versus chronic T12 fracture. The sherlyn ent will be treated nonoperatively for the same. The patient currently is awaiting hospice decision by the family. She had no issues overnight. PHYSICAL EXAMINATION: VITAL SIGNS: Temperature is 97.7, heart rate 107, blood pressure 95/60, respirations 16. GENERAL: The patient is lying in bed. She is nonverbal, does respond to simple commands. HEENT: Unremarkable. LUNGS: Clear to auscultation. HEART: Irregularly irregular, consistent with her history of atrial fibrillation. ABDOMEN: Soft, flat with hypoactive bowel sounds. NEURO: The patient is neurovascularly intact x4. LABORATORY DATA: None today, and no radiographs either. ASSESSMENT AND PLAN: 1. Status post fall. 2. Right distal femur fracture. 3. Acute versus chronic T12 fracture. PLAN: The plan will be to continue supportive care, pain management. We will check her labs tomorro w morning. The patient is currently DNR and we are awaiting hospice decision by the family. The elsy luation examination will be discussed with Dr. Carlos after this.
--- NOTE | 2017-08-10 11:24 | RAD ---
UPRIGHT PORTABLE CHEST 1 VIEW: Date: 08/10/17 HISTORY: 77-year-old female with respiratory insufficiency. COMPARISON: 08/08/17. FINDINGS: NG tube and endotracheal tubes have been removed. Poor inspiratory effort. Bilateral vascular congest ion and bilateral pleural effusions which appear to be progressive when compared to the prior study. There is slightly more dense diffuse opacity in the left chest when compared to the right. The patien t is significantly kyphotic in position for this study. IMPRESSION: Removal of the NG tube and endotracheal tubes. Worsening bilateral vascular congestion and bilateral pleural effusions with some possible diffuse alveolar opacity changes in the left chest. Continue shahla rt-term follow-up. POS: SAIMA
--- NOTE | 2017-08-10 11:25 | RAD ---
SUPINE KUB: Date: 08/10/17 COMPARISON: 08/09/17. HISTORY: Re-evaluate ileus versus small bowel obstruction. FINDINGS: The nasogastric tube present on the prior examination has been removed. There are dilated loops of sm all bowel in the mid abdomen/right lower quadrant measuring up to 3.5 cm. When compared to the examination, the small bowel distention is not significantly changed. Stable IVC filter noted. IMPRESSION: Interval removal of nasogastric tube. Persistent gas-filled dilated small bowel in the lower mid abdo men/right lower quadrant may signify small bowel obstruction or ileus. POS: SAIMA
[2017-08-10] MEDS: Ondansetron ODT 4 MG TAB PO SCH ×2 (11:31→20:56)
--- NOTE | 2017-08-10 12:46 | PDOC.PN ---
- Subjective Encounter Start Date: 08/10/17 Encounter Start Time: 12:44 Overnight, Ms Barnett pulled out her NG tube. As per nursing staffing coordinator, didn't take her evening medications. No new complaints reported. - Objective Resuscitation Status: Resuscitation Status DNR:Do Not Resuscitate MAR Reviewed: Yes Vital Signs & Weight: Vital Signs (12 hours) Temp Pulse Resp BP BP Pulse Ox 08/10/17 11:15 98.2 F 103 H 20 104/66 89 L 08/10/17 09:40 97.7 F 107 H 16 91 L 08/10/17 07:15 97.7 F 107 H 16 95/60 91 L 08/10/17 07:13 91 L 08/10/17 07:07 107 H 16 08/10/17 04:10 98.1 F 108 H 20 92/58 L 90 L 08/10/17 01:20 92 L Weight Admit Weight 106 lb 12.8 oz Weight 116 lb 9.6 oz Most Recent Monitor Data Heart Rate from ECG 97 NIBP 92/46 NIBP BP-Mean 60 Respiration from ECG 24 SpO2 95 I&O: 08/09/17 08/10/17 08/11/17 06:59 06:59 06:59 Intake Total 4252 3000 Output Total 3704 225 Balance 548 1625 Result Diagrams: 08/09/17 04:46 08/09/17 04:46 Phys Exam - Physical Examination Constitutional: NAD dry MM Neck: no nodes Mild rales Cardiovascular: irregular mild distention with hypoactive bowel sounds Musculoskeletal: pulses present Skin: no rash Dx/Plan (1) Ileus Code(s): K56.7 - ILEUS, UNSPECIFIED Status: Acute (2) Acute respiratory failure Code(s): J96.00 - ACUTE RESPIRATORY FAILURE, UNSP W HYPOXIA OR HYPERCAPNIA Status: Resolved Qualifiers: Respiratory failure complication: hypoxia and hypercapnia Qualified Code(s) : J96.01 - Acute respiratory failure with hypoxia; J96.02 - Acute respiratory failure with hypercapnia; J96.02 - Acute respiratory failure with hypercapnia; J96.02 - Acute respiratory failure with hypercapnia (3) Pseudomonas urinary tract infection Code(s): N39.0 - URINARY TRACT INFECTION, SITE NOT SPECIFIED; B96.5 - PSEUDOMONAS (MALLEI) CAUSING DISEASES CLASSD ELSWHR Status: Acute (4) Atrial fibrillation Code(s): I48.91 - UNSPECIFIED ATRIAL FIBRILLATION Status: Chronic Qualifiers: Atrial fibrillation type: paroxysmal Qualified Code(s): I48.0 - Paroxysmal atrial fibrillation - Plan cont current plan of care, continue antibiotics, 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 * Flecainide for atrial fibrillation * Continue IV ABX and steroids * The patient's overall prognosis is poor. The family has made her a DNR, but are not decided yet with hospice. * F/U with palliative care consult
[2017-08-10] MEDS: Heparin 5,000 UNITS/ML VIAL SC SCH ×2 (13:19→20:52)
[2017-08-10 20:42] VITALS: BP 95/61; TEMP 98.9
--- NOTE | 2017-08-12 08:46 | EKG ---
Test Reason : STAT Blood Pressure : / mmHG Vent. Rate : 119 BPM Atrial Rate : 117 BPM P-R Int : 000 ms QRS Dur : 100 ms QT Int : 338 ms P-R-T Axes : 000 -42 020 degrees QTc Int : 475 ms Atrial fibrillation with rapid ventricular response Left axis deviation Minimal voltage criteria for LVH, may be normal variant Septal infarct , age undetermined Abnormal ECG When compared with ECG of 05-AUG-2016 19:40, Atrial fibrillation has replaced Sinus rhythm Vent. rate has increased BY 47 BPM Septal infarct is now Present Confirmed by Emani DENNIS ([id number]) on 08/12/2017 8:46:11 AM Referred By: Confirmed By:Emani DENNIS
--- NOTE | 2017-08-13 09:25 | DS ---
DATE OF ADMISSION: 08/04/2017 DATE OF : 08/11/2017 ADMISSION DIAGNOSES: 1. Status post mechanical fall. 2. Right distal femur fracture. 3. Acute versus chronic T12 fracture. 4. Urinary tract infection. 5. History of atrial fibrillation. CONSULTATIONS: Neurosurgery, Dr. Weber; Orthopedics, Dr. Cochran. SUMMARY: Patient is a 77-year-old woman who was admitted to our facility after sustaining a fall in which she sustained a right medial condyle fracture of her femur and a questionable acute versus special collections librarian gonsalo T12 fracture. The patient will be admitted overnight. Due to her prior medical history and stat e of health, it was decided that it was best to treat her fracture nonoperatively of her femur. The T12 fracture appeared to be more chronic in nature, but the patient could be braced for comfort. Ove r the next several days, the patient's renal function would start to decline as would her respiratory status with her history of atrial fibrillation that is felt most likely cardiac in nature. The sherlyn ent spent several days on the telemetry unit and after discussing with the family, the family made th e patient DNR and was discussing hospice options the day prior to the patient expiring. During the e vening, it was noted that the patient's mental status had declined and she started having agonal resp irations and over the next several hours, she slowly declined until she finally succumbed and pass qu ietly. The house bilingual medical receptionist was notified who pronounced the patient and the family was also not ified.
== END 2017-08-11 00:22 | disposition expired | DRG 551 ==
LOC: ERS 23:23 → 2NO 08-04 02:10 → CCU 08-07 22:09 → SURG A 08-08 17:31
PROVIDERS: ADMIT Surgery; ATTEND Surgery
PROC: 5A09357 Assistance with Respiratory Ventilation, Less than 24 Consecutive Hours, Continuous Positive Airway Pressure (ICD-10-PCS; 2017-08-07)
PROC: 0BH17EZ Insertion of Endotracheal Airway into Trachea, Via Natural or Artificial Opening (ICD-10-PCS; principal; 2017-08-08)
PROC: 5A1935Z Respiratory Ventilation, Less than 24 Consecutive Hours (ICD-10-PCS; 2017-08-08)
DX: S22.089A Unspecified fracture of T11-T12 vertebra, initial encounter for closed fracture (principal); G93.40 Encephalopathy, unspecified; N17.9 Acute kidney failure, unspecified; J96.01 Acute respiratory failure with hypoxia; S72.431A Displaced fracture of medial condyle of right femur, initial encounter for closed fracture; J96.02 Acute respiratory failure with hypercapnia; K56.609 Unspecified intestinal obstruction, unspecified as to partial versus complete obstruction; I48.0 Paroxysmal atrial fibrillation; I10 Essential (primary) hypertension; E87.1 Hypo-osmolality and hyponatremia; R55 Syncope and collapse; N39.0 Urinary tract infection, site not specified; M48.54XA Collapsed vertebra, not elsewhere classified, thoracic region, initial encounter for fracture; K56.7 Ileus, unspecified; G24.9 Dystonia, unspecified; M41.9 Scoliosis, unspecified; W18.30XA Fall on same level, unspecified, initial encounter; Z91.81 History of falling; E03.9 Hypothyroidism, unspecified; Z96.653 Presence of artificial knee joint, bilateral; Z96.643 Presence of artificial hip joint, bilateral; Z66 Do not resuscitate; Z51.5 Encounter for palliative care; Z79.01 Long term (current) use of anticoagulants; B96.5 Pseudomonas (aeruginosa) (mallei) (pseudomallei) as the cause of diseases classified elsewhere; E86.0 Dehydration; R42 Dizziness and giddiness; J44.9 Chronic obstructive pulmonary disease, unspecified; E78.5 Hyperlipidemia, unspecified; K21.9 Gastro-esophageal reflux disease without esophagitis; Z88.1 Allergy status to other antibiotic agents; Z88.8 Allergy status to other drugs, medicaments and biological substances
CPT/HCPCS: 36415; 36416; 71010; 72072; 72100; 72131; 74000; 80048; 80053; 81001; 82533; 82553; 82805; 83605; 83735; 83880; 84100; 84484; 85007; 85025; 85027; 85379; 87077; 87086; 87186; 93005; 93010; 93306; 93880; 94002; 94640; 94660; 96374; 96375; A4216; G0390; G8978-GP-CM; G8978-GP-CN; G8979-GP-CL; G8979-GP-CM; G8987-GO-CM; G8988-GO-CK; G8996-GN-CN; G8997-GN-CL; J0131; J0360; J1644; J1720; J2185; J2270; J2274; J2405; J7050; J7620; P9045; P9047; S0028